=== PATIENT | male | born 1940 | race Caucasian/White ===

== ENCOUNTER 2019-01-11 10:22 | Inpatient (IN) ==
[2019-01-11] MEDS ORDERED: 0.9 % Sodium Chloride 1,000 ML IVC ONE (10:32)
[2019-01-11 11:14] LABS: Basophils % 0.2 %; Eosinophils # 0.1 K/mcL (0.0-0.6); Eosinophils % 0.5 %; Hematocrit 38.7 % (37.5-50.1); Hemoglobin 12.5 g/dL (12.9-16.9); Immature Granulocytes % 0.5 % (0-4); Lymphocytes # 0.5 K/mcL (0.6-4.6); Lymphocytes % 4.3 %; Mean Corpuscular HGB Conc 32.3 g/dL (31.6-35.5); Mean Corpuscular Hemoglobin 29.6 pg (28.0-33.3); Mean Corpuscular Volume 91.5 fL (83.0-100.0); Mean Platelet Volume 9.5 fL (9.4-12.4); Monocytes # 1.4 K/mcL (0.0-1.3); Neutrophils # 10.6 K/mcL (1.6-8.9); Platelet Count 218 K/mcL (140-400); Red Blood Count 4.23 M/mcL (4.19-5.50); Red Cell Distribution Width 14.5 % (11.5-14.5); Segmented Neutrophils % 83.5 %; White Blood Count 12.7 K/mcL (4.3-11.1)
--- NOTE | 2019-01-11 11:21 | Emergency Department Note ---
Disposition Clinical Impression: Acute kidney injury, Elevated troponin Fall Qualifiers: Encounter type: initial encounter Qualified Code(s): W19.XXXA - Unspecified fal l, initial encounter Abrasion of shoulder area Qualifiers: Encounter type: initial encounter Laterality: unspecified laterality Qualified Code(s): S40.219A - Abrasion of unspecified shoulder, initial encounter Abrasion of left forearm Qualifiers: Encounter type: initial encounter Qualified Code(s): S50.812A - Abrasion of left forearm, initial encounter Rhabdomyolysis Qualifiers: Rhabdomyolysis type: traumatic Encounter type: initial encounter Qualified Code(s): T79.6XXA - Traumatic ischemia of muscle, initial encounter Disposition: Admitted As Inpatient Condition: Fair Time of Disposition: 13:41 General Adult HPI - General Chief complaint: ED Fall Stated complaint: Fall, weakness Time Seen by Provider: 01/11/19 10:31 Source: patient, EMS Mode of arrival: EMS Limitations: altered mental status Nursing Notes Reviewed: Yes Vital Signs Reviewed: Yes - History of Present Illness HPI Narrative: Patient is a 78-year-old male with past medical history of hormone replacement, seizure, BPH, and Parkinson's presents to the ED by debbie for evaluation of fal l. Patient lives at home on his own. His family checked on him yesterday and he appeared fine. Somewhere over the past 24 hours he had a fall in which she landed in between his dresser and his bed and was found during a well checked today by police and brought in by squad. Patient states that he recalls the fall and states that he does became weak and lost his footing while getting out of bed and fell down onto his right side was lodged in between his dresser in his bed and to weak to get up. He denies head injury or LOC. Denies blood thinners. Lives at home on his own and his family lives in [place]. Pain Scale: 0 - Related Data Home Medications Medication Instructions Recorded Confirmed Alfuzosin HCl [Uroxatral] 10 mg PO DAILY 01/11/19 01/11/19 Carbidopa/Levodopa ER 50/200 0.5 tab PO 0900 01/11/19 01/11/19 [Sinemet ER 50-200 TAB] Carbidopa/Levodopa ER 50/200 1 tab PO 1700 01/11/19 01/11/19 [Sinemet ER 50-200 TAB] Cholecalciferol (D-3) [Vitamin D] 1,000 unit PO DAILY 01/11/19 01/11/19 Flaxseed Oil [[place]-3 Flaxseed Oil] 1,000 mg PO DAILY 01/11/19 01/11/19 Hydrocortisone [Cortef] 10 mg PO BID 01/11/19 01/11/19 Levothyroxine Sodium [Synthroid] 200 mcg PO DAILY 01/11/19 01/11/19 Omeprazole [PriLOSEC] 20 mg PO DAILY 01/11/19 01/11/19 Solifenacin Succinate [Vesicare] 10 mg PO DAILY 01/11/19 01/11/19 Testosterone Cypionate 200 mg IM Q18D 01/11/19 01/11/19 [Depo-Testosterone] lamoTRIgine [Lamotrigine] 150 mg PO BID 01/11/19 01/11/19 Allergies Allergy/AdvReac Type Severity Reaction Status Date / Time No Known Allergies Allergy Verified 01/11/19 13:18 All systems ED: reviewed and negative except as stated. Review of Systems: As Per HPI Constitutional: Denies: fever, chills Cardiovascular: Reports: chest pain (Abrasion to left chest wall). Denies: palpitations, dyspnea on exertion, edema, syncope, paroxysmal nocturnal dyspnea Respiratory: Denies: cough, dyspnea, wheezes Gastrointestinal: Denies: abdominal pain, nausea, vomiting, diarrhea Genitourinary: Denies: urgency, dysuria Musculoskeletal: Denies: back pain, neck pain Integumentary: Reports: rash (Abrasion to the posterior shoulders bilaterally worse on the left. ) Neurological: Denies: headache, weakness, numbness, paresthesias, confusion Past Medical History - Past Medical History Attestation: Yes The following information was validated with the patient. Medical history: Reports: non-contributory, hypertension, seizures, thyroid disease, other Surgical history: Reports: herniorrhaphy, other Psychiatric history: Reports: no psych history - Social History Smoking Status: Never smoker Smokeless Tobacco Status: No Alcohol use: Reports: none Drug use: Reports: none Physical Exam - General Limitations: no limitations General appearance: alert, in no apparent distress - Head Head exam: atraumatic, normocephalic, normal inspection - Eye Eye exam: Present: normal appearance, PERRL, EOMI - ENT ENT exam: normal exam, normal oropharynx, mucous membranes moist - Neck Neck exam: Present: normal inspection, full ROM, trachea midline - Chest Chest inspection: Present: normal inspection, symmetric chest wall rise - Expanded Chest Exam Trauma: Present: abrasion, other (left chest wall abrasion. No crepitance. ) - Respiratory Respiratory exam: Present: normal lung sounds bilaterally. Absent: respiratory distress, wheezes - Cardiovascular Cardiovascular exam: Present: regular rate, normal rhythm, normal heart sounds - Abdominal Exam Abdominal exam: Present: soft, Non-Tender. Absent: tenderness, distention, guarding, rebound, rigidity - Extremities Exam Extremities exam: Present: other (abrasion of the left forearm. ) - Back Exam Back exam: Present: full ROM, other (posterior shoulder abrasions bilaterally. No bony deformity. No midline or paraspinal tenderness, step-off or deformity. ). Absent: tenderness - Neurological Exam Neurological exam: Present: alert, oriented X3 - Expanded Neurological Exam Patient oriented to: Present: person, place, time Speech: Present: fluid speech Cranial nerves: EOM function (II, III, IV, ): Normal, facial sensation (V): Normal, facial palsy (VII): Normal, gag reflex (IX): Normal, spinal accessory function (XI): Normal, tongue deviation (XII): Normal Motor strength - LUE: 5/5 Motor strength - RUE: 5/5 Motor strength - LLE: 5/5 Motor strength - RLE: 5/5 Sensory exam upper extremity: light touch: Normal Sensory exam lower extremity: light touch: Normal Coma Scale Eye Opening: Spontaneous Coma Scale Motor Response: Obeys Commands Coma Scale Verbal Response: Oriented Coma Scale Total: 15 - Psychiatric Psychiatric exam: Present: normal affect, normal mood - Skin Skin exam: Present: warm, dry, intact, normal color Course Course Narrative: Patient's lab work was significant for elevation of creatinine to 6.59 as well as GFR of 8 which is new compared to labs in August 2017 as well as an elevation of troponin of 0.04 and CK of 1600. This is concerning for rhabdomyolysis causing acute kidney failure. Patient received a liter of fluids was placed on maintenance IV fluids. Urinalysis was collected which showed blood. I discussed these findings with the tunnel form placing supervisor, Dr. Avalos on-call and he agreed to see the patient in consultation. CT of abdomen and pelvis was added onto the patient's exam to evaluate for the sudden a cat which I suspect is more so due to the patient being on the ground over night. His imaging otherwise is unremarkable. I suspect his elevation of troponin which is only very mild elevation is due to the fact that his kidneys are injured. He was admitted to the hospitalist, Dr. Moore for further management. Vital Signs Temperature 98.2 F 01/11/19 10:28 Pulse Rate 76 01/11/19 10:28 Respiratory Rate 18 01/11/19 10:28 Blood Pressure 163/84 01/11/19 10:28 O2 Sat by Pulse Oximetry 99 01/11/19 10:28 Temperature 98.2 F 01/11/19 19:43 Pulse Rate 72 01/11/19 19:43 Respiratory Rate 17 01/11/19 19:43 Blood Pressure 131/64 01/11/19 19:43 O2 Sat by Pulse Oximetry 98 01/11/19 19:43 Oxygen Delivery Oxygen Delivery Room Air Medical Decision Making - Medical Records Medical records reviewed: Yes I reviewed the patient's medical records. - Lab Data Lab results reviewed: Yes I reviewed the patient's lab results. Result diagrams: 01/11/19 10:55 01/11/19 16:23 Lab Results 01/11/19 01/11/19 01/11/19 Range/Units 10:55 10:55 10:55 WBC 12.7 H (4.3-11.1) K/mcL RBC 4.23 (4.19-5.50) M/mcL Hgb 12.5 L (12.9-16.9) g/dL Hct 38.7 (37.5-50.1) % MCV 91.5 (83.0-100.0) fL MCH 29.6 (28.0-33.3) pg MCHC 32.3 (31.6-35.5) g/dL RDW 14.5 (11.5-14.5) % Plt Count 218 (140-400) K/mcL MPV 9.5 (9.4-12.4) fL Immature Gran % 0.5 (0-4) % Seg Neutrophils % 83.5 % Lymphocytes % 4.3 % Monocytes % 11.0 % Eosinophils % 0.5 % Basophils % 0.2 % Neutrophils # 10.6 H (1.6-8.9) K/mcL Lymphocytes # 0.5 L (0.6-4.6) K/mcL Monocytes # 1.4 H (0.0-1.3) K/mcL Eosinophils # 0.1 (0.0-0.6) K/mcL Basophils # 0.0 (0.0-0.2) K/mcL Sodium 139 (136-145) mEq/L Potassium 4.4 (3.5-5.1) mEq/L Chloride 103 (98-107) mEq/L Carbon Dioxide 22 L (23-29) mEq/L BUN 68 H (8-23) mg/dL Creatinine 6.59 H (0.70-1.30) mg/dL Est GFR ( Amer) 10 L (> 60) Est GFR (Non-Af Amer) 8 L (> 60) BUN/Creatinine Ratio 10 (6-26) Glucose 100 (70-105) mg/dL Calculated Osmolality 308 H (280-300) Calcium 9.1 (8.6-10.3) mg/dL Creatine Kinase 1605 H (30-223) Units/L Troponin I 0.04 H* (< 0.04) ng/mL Urine Color (Yellow) Urine Clarity (Clear) Urine pH (5.0-8.0) pH Units Ur Specific [place] (1.010-1.025) Urine Protein (Neg-Trace) mg/dL Urine Glucose (UA) (Normal) mg/dL Urine Ketones (Negative) mg/dL Urine Blood (Negative) Urine Nitrite (Negative) Urine Bilirubin (Negative) Urine Urobilinogen (Normal) mg/dL Ur Leukocyte Esterase (Negative) Urine Microscopic RBC (0-3) per hpf Urine Microscopic WBC (0-3) per hpf Ur Squamous Epith Cells (None-Few) per lpf Urine Bacteria (None-Few) per hpf Hyaline Casts (None-Few) per lpf Ur Culture Indicated? (NO) 01/11/19 Range/Units 12:08 WBC (4.3-11.1) K/mcL RBC (4.19-5.50) M/mcL Hgb (12.9-16.9) g/dL Hct (37.5-50.1) % MCV (83.0-100.0) fL MCH (28.0-33.3) pg MCHC (31.6-35.5) g/dL RDW (11.5-14.5) % Plt Count (140-400) K/mcL MPV (9.4-12.4) fL Immature Gran % (0-4) % Seg Neutrophils % % Lymphocytes % % Monocytes % % Eosinophils % % Basophils % % Neutrophils # (1.6-8.9) K/mcL Lymphocytes # (0.6-4.6) K/mcL Monocytes # (0.0-1.3) K/mcL Eosinophils # (0.0-0.6) K/mcL Basophils # (0.0-0.2) K/mcL Sodium (136-145) mEq/L Potassium (3.5-5.1) mEq/L Chloride (98-107) mEq/L Carbon Dioxide (23-29) mEq/L BUN (8-23) mg/dL Creatinine (0.70-1.30) mg/dL Est GFR ( Amer) (> 60) Est GFR (Non-Af Amer) (> 60) BUN/Creatinine Ratio (6-26) Glucose (70-105) mg/dL Calculated Osmolality (280-300) Calcium (8.6-10.3) mg/dL Creatine Kinase (30-223) Units/L Troponin I (< 0.04) ng/mL Urine Color Yellow (Yellow) Urine Clarity Clear (Clear) Urine pH 5.5 (5.0-8.0) pH Units Ur Specific [place] 1.009 L (1.010-1.025) Urine Protein Negative (Neg-Trace) mg/dL Urine Glucose (UA) Normal (Normal) mg/dL Urine Ketones Negative (Negative) mg/dL Urine Blood Moderate H (Negative) Urine Nitrite Negative (Negative) Urine Bilirubin Negative (Negative) Urine Urobilinogen Normal (Normal) mg/dL Ur Leukocyte Esterase Negative (Negative) Urine Microscopic RBC 15-30 H (0-3) per hpf Urine Microscopic WBC 0-3 (0-3) per hpf Ur Squamous Epith Cells Moderate H (None-Few) per lpf Urine Bacteria None Seen (None-Few) per hpf Hyaline Casts None Seen (None-Few) per lpf Ur Culture Indicated? NO (NO) - Radiology Data Radiology results reviewed: Yes I reviewed the patient's radiology results. Cervical Spine CT 01/11/19 10:32 IMPRESSION: No acute abnormality of the cervical spine. Severe multilevel degenerative changes. Diffuse osteopenia. Partial visualization of biapical opacities. Findings are similar to CT dated January 2017 and likely represent pleuroparenchymal scarring. D/ / 01/11/2019 12:20:44 Kerry Hoff MD / Wendy Lester Interpreting Provider: Kerry Hoff MD Chest X-Ray 01/11/19 10:32 IMPRESSION: 1. No acute cardiopulmonary disease. 2. No acute osseous abnormality of the left shoulder. 3. Mild shoulder osteoarthritis. 4. COPD. D/ / 01/11/2019 11:14:48 Kerry Hoff MD / Wendy Lester Interpreting Provider: Kerry Hoff MD Head CT 01/11/19 10:32 IMPRESSION: Chronic findings in the brain without acute CT abnormality identified. D/ / Huan Colby / Huan Colby Interpreting Provider: Huan Colby Shoulder X-Ray 01/11/19 10:34 IMPRESSION: 1. No acute cardiopulmonary disease. 2. No acute osseous abnormality of the left shoulder. 3. Mild shoulder osteoarthritis. 4. COPD. D/ / 01/11/2019 11:14:48 Kerry Hoff MD / Wendy Lester Interpreting Provider: Kerry Hoff MD - EKG Data EKG #1 EKG attestation: Yes I reviewed and interpreted this EKG. EKG results narrative: EKG done at 10:34 shows sinus rhythm at a rate of 76 bpm. Normal axis. Intervals including QRS that is widened at 127 and patient has a left bundle branch block with peaked T waves. These are unchanged when compared to old EKG performed in March 2018. Otherwise no new ischemic changes.
--- NOTE | 2019-01-11 11:30 | Emergency Department Note ---
Disposition Clinical Impression: Acute kidney injury, Elevated troponin Fall Qualifiers: Encounter type: initial encounter Qualified Code(s): W19.XXXA - Unspecified fal l, initial encounter Abrasion of shoulder area Qualifiers: Encounter type: initial encounter Laterality: unspecified laterality Qualified Code(s): S40.219A - Abrasion of unspecified shoulder, initial encounter Abrasion of left forearm Qualifiers: Encounter type: initial encounter Qualified Code(s): S50.812A - Abrasion of left forearm, initial encounter Rhabdomyolysis Qualifiers: Rhabdomyolysis type: traumatic Encounter type: initial encounter Qualified Code(s): T79.6XXA - Traumatic ischemia of muscle, initial encounter Disposition: Admitted As Inpatient Condition: Fair Referrals: Earl Martin MD [Primary Care Provider] - Forms: ED Satisfaction Letter General Adult HPI - General Chief complaint: ED Fall Stated complaint: Fall, weakness Time Seen by Provider: 01/11/19 10:31 Source: patient, EMS Mode of arrival: EMS Limitations: altered mental status - History of Present Illness Pain Scale: 0 - Related Data Home Medications Medication Instructions Recorded Confirmed Alfuzosin HCl [Uroxatral] 10 mg PO DAILY 01/11/19 01/11/19 Carbidopa/Levodopa ER 50/200 0.5 tab PO 0900 01/11/19 01/11/19 [Sinemet ER 50-200 TAB] Carbidopa/Levodopa ER 50/200 1 tab PO 1700 01/11/19 01/11/19 [Sinemet ER 50-200 TAB] Cholecalciferol (D-3) [Vitamin D] 1,000 unit PO DAILY 01/11/19 01/11/19 Flaxseed Oil [[place]-3 Flaxseed Oil] 1,000 mg PO DAILY 01/11/19 01/11/19 Hydrocortisone [Cortef] 10 mg PO BID 01/11/19 01/11/19 Levothyroxine Sodium [Synthroid] 200 mcg PO DAILY 01/11/19 01/11/19 Omeprazole [PriLOSEC] 20 mg PO DAILY 01/11/19 01/11/19 Solifenacin Succinate [Vesicare] 10 mg PO DAILY 01/11/19 01/11/19 Testosterone Cypionate 200 mg IM Q18D 01/11/19 01/11/19 [Depo-Testosterone] lamoTRIgine [Lamotrigine] 150 mg PO BID 01/11/19 01/11/19 Allergies Allergy/AdvReac Type Severity Reaction Status Date / Time No Known Allergies Allergy Verified 01/11/19 13:18 Constitutional: Denies: fever, chills Cardiovascular: Reports: chest pain (Abrasion to left chest wall). Denies: palpitations, dyspnea on exertion, edema, syncope, paroxysmal nocturnal dyspnea Respiratory: Denies: cough, dyspnea, wheezes Gastrointestinal: Denies: abdominal pain, nausea, vomiting, diarrhea Genitourinary: Denies: urgency, dysuria Musculoskeletal: Denies: back pain, neck pain Integumentary: Reports: rash (Abrasion to the posterior shoulders bilaterally worse on the left. ) Neurological: Denies: headache, weakness, numbness, paresthesias, confusion Past Medical History - Past Medical History Medical history: Reports: non-contributory, hypertension, seizures, thyroid disease, other Surgical history: Reports: herniorrhaphy, other Psychiatric history: Reports: no psych history - Social History Smoking Status: Never smoker Smokeless Tobacco Status: No Alcohol use: Reports: none Drug use: Reports: none Physical Exam - General Limitations: altered mental status General appearance: alert, in no apparent distress Course Vital Signs Temperature 98.2 F 01/11/19 10:28 Pulse Rate 76 01/11/19 10:28 Respiratory Rate 18 01/11/19 10:28 Blood Pressure 163/84 01/11/19 10:28 O2 Sat by Pulse Oximetry 99 01/11/19 10:28 Temperature 98.2 F 01/11/19 10:28 Pulse Rate 73 01/11/19 12:22 Respiratory Rate 18 01/11/19 12:22 Blood Pressure 149/76 01/11/19 12:22 O2 Sat by Pulse Oximetry 100 01/11/19 12:22 Oxygen Delivery Oxygen Delivery Room Air Medical Decision Making - Lab Data Lab results reviewed: Yes I reviewed the patient's lab results. Result diagrams: 01/11/19 10:55 01/11/19 10:55 Lab Results 01/11/19 01/11/19 01/11/19 Range/Units 10:55 10:55 10:55 WBC 12.7 H (4.3-11.1) K/mcL RBC 4.23 (4.19-5.50) M/mcL Hgb 12.5 L (12.9-16.9) g/dL Hct 38.7 (37.5-50.1) % MCV 91.5 (83.0-100.0) fL MCH 29.6 (28.0-33.3) pg MCHC 32.3 (31.6-35.5) g/dL RDW 14.5 (11.5-14.5) % Plt Count 218 (140-400) K/mcL MPV 9.5 (9.4-12.4) fL Immature Gran % 0.5 (0-4) % Seg Neutrophils % 83.5 % Lymphocytes % 4.3 % Monocytes % 11.0 % Eosinophils % 0.5 % Basophils % 0.2 % Neutrophils # 10.6 H (1.6-8.9) K/mcL Lymphocytes # 0.5 L (0.6-4.6) K/mcL Monocytes # 1.4 H (0.0-1.3) K/mcL Eosinophils # 0.1 (0.0-0.6) K/mcL Basophils # 0.0 (0.0-0.2) K/mcL Sodium 139 (136-145) mEq/L Potassium 4.4 (3.5-5.1) mEq/L Chloride 103 (98-107) mEq/L Carbon Dioxide 22 L (23-29) mEq/L BUN 68 H (8-23) mg/dL Creatinine 6.59 H (0.70-1.30) mg/dL Est GFR ( Amer) 10 L (> 60) Est GFR (Non-Af Amer) 8 L (> 60) BUN/Creatinine Ratio 10 (6-26) Glucose 100 (70-105) mg/dL Calculated Osmolality 308 H (280-300) Calcium 9.1 (8.6-10.3) mg/dL Creatine Kinase 1605 H (30-223) Units/L Troponin I 0.04 H* (< 0.04) ng/mL Urine Color (Yellow) Urine Clarity (Clear) Urine pH (5.0-8.0) pH Units Ur Specific [place] (1.010-1.025) Urine Protein (Neg-Trace) mg/dL Urine Glucose (UA) (Normal) mg/dL Urine Ketones (Negative) mg/dL Urine Blood (Negative) Urine Nitrite (Negative) Urine Bilirubin (Negative) Urine Urobilinogen (Normal) mg/dL Ur Leukocyte Esterase (Negative) Urine Microscopic RBC (0-3) per hpf Urine Microscopic WBC (0-3) per hpf Ur Squamous Epith Cells (None-Few) per lpf Urine Bacteria (None-Few) per hpf Hyaline Casts (None-Few) per lpf Ur Culture Indicated? (NO) 01/11/19 Range/Units 12:08 WBC (4.3-11.1) K/mcL RBC (4.19-5.50) M/mcL Hgb (12.9-16.9) g/dL Hct (37.5-50.1) % MCV (83.0-100.0) fL MCH (28.0-33.3) pg MCHC (31.6-35.5) g/dL RDW (11.5-14.5) % Plt Count (140-400) K/mcL MPV (9.4-12.4) fL Immature Gran % (0-4) % Seg Neutrophils % % Lymphocytes % % Monocytes % % Eosinophils % % Basophils % % Neutrophils # (1.6-8.9) K/mcL Lymphocytes # (0.6-4.6) K/mcL Monocytes # (0.0-1.3) K/mcL Eosinophils # (0.0-0.6) K/mcL Basophils # (0.0-0.2) K/mcL Sodium (136-145) mEq/L Potassium (3.5-5.1) mEq/L Chloride (98-107) mEq/L Carbon Dioxide (23-29) mEq/L BUN (8-23) mg/dL Creatinine (0.70-1.30) mg/dL Est GFR ( Amer) (> 60) Est GFR (Non-Af Amer) (> 60) BUN/Creatinine Ratio (6-26) Glucose (70-105) mg/dL Calculated Osmolality (280-300) Calcium (8.6-10.3) mg/dL Creatine Kinase (30-223) Units/L Troponin I (< 0.04) ng/mL Urine Color Yellow (Yellow) Urine Clarity Clear (Clear) Urine pH 5.5 (5.0-8.0) pH Units Ur Specific [place] 1.009 L (1.010-1.025) Urine Protein Negative (Neg-Trace) mg/dL Urine Glucose (UA) Normal (Normal) mg/dL Urine Ketones Negative (Negative) mg/dL Urine Blood Moderate H (Negative) Urine Nitrite Negative (Negative) Urine Bilirubin Negative (Negative) Urine Urobilinogen Normal (Normal) mg/dL Ur Leukocyte Esterase Negative (Negative) Urine Microscopic RBC 15-30 H (0-3) per hpf Urine Microscopic WBC 0-3 (0-3) per hpf Ur Squamous Epith Cells Moderate H (None-Few) per lpf Urine Bacteria None Seen (None-Few) per hpf Hyaline Casts None Seen (None-Few) per lpf Ur Culture Indicated? NO (NO) Critical Care Time Critical Care Time: Yes Total Critical Care Time: 35 Attestation: Critical care time 35 minutes excluding billable procedures due to the patient's acute kidney injury in conjunction with specialty consultation and management. Attestation Statement - Attestation Attestation: Desirae Guzman D.O., examined this patient and my medical decision-making was reviewed with the Resident Physician. I agree with the documented findings, disposition and treatment plan as described except to the extent set forth below. Patient seen in conjunction with Dr Sarkar. Please see his doctor mentation as well for history exam interventions and disposition. In brief 78-year-old male lives at home alone with a history of Parkinson's who presents due to fall. States he believes he fell out of bed last night. He was pinned between his bed and dress her. Denies head injury or loss of consciousness. Family last heard from him yesterday. Her complaint includes left-sided chest wall pain and left shoulder pain. Does not appear to be on any antiplatelet or anticoagulation medications. On exam he is alert, GCS 15, alert and oriented 3 answering questions appropriately. He has abrasions over the left shoulder and left chest wall. Oral mucosa are dry. Heart is regular rate and rhythm. Lungs are clear to auscultation bilaterally. He has chest wall tenderness over the left chest wall. Abdomen is soft nondistended no guarding no peritoneal features. X-rays are without edema or obvious injury. He does have a skin tear to the right forearm. Plan: Plan for CT imaging of the head and cervical spine given his fall. We will also initiate a workup for generalized weakness. Patient will likely warrant admission to the hospital or care facility given his weakness and fact that he lives at home alone. Labs reviewed. Patient has acute kidney injury. Marx will be placed for I&O. We will continue IV fluids. Case was discussed with nephrology who was consulted for this. The patient has no left leg abnormality warranting emergent dialysis at this point. He will be admitted to the hospitalist service. Elevated troponin of 0.04. He is chest pain-free. Nonischemic EKG. This case was discussed with the admitting hospitalist Dr. Moore who accepted the patient for admission. EKG interpretation: EKG discussed with resident physician, agree with their documentation and interpretation. EKG demonstrates sinus rhythm with left bundle branch block. Rate 76. Normal axis. J-point elevation in the anterior leads. No acute ischemic findings. No significant changes from previous EKG dated 03/28/18.
[2019-01-11 11:32] LABS: Calcium 9.1 mg/dL (8.6-10.3); Potassium 4.4 mEq/L (3.5-5.1)
[2019-01-11 11:39] LABS: Troponin I 0.04 ng/mL (< 0.04)
[2019-01-11 12:22] LABS: Bilirubin,Urine Negative (Negative); Blood,Urine Moderate (Negative); Clarity,Urine Clear (Clear); Color,Urine Yellow (Yellow); Glucose,Urine (UA) Normal (Normal); Ketones,Urine Negative (Negative); Leukocyte Esterase,Urine Negative (Negative); Nitrite,Urine Negative (Negative); PH,Urine 5.5 pH Units (5.0-8.0); Protein,Urine Negative (Neg-Trace); Specific Gravity,Urine 1.009 (1.010-1.025); Urobilinogen,Urine Normal (Normal)
[2019-01-11 12:24] LABS: Bacteria,Urine None Seen per hpf (None-Few); Hyaline Casts,Urine None Seen per lpf (None-Few); RBC,Urine 15-30 per hpf (0-3); Squamous Epithelial Cell,Urine Moderate per lpf (None-Few); WBC,Urine 0-3 per hpf (0-3)
[2019-01-11] MEDS ORDERED: Naloxone 0.4 MG/ML INJ IVP PRN (13:31)
[2019-01-11] MEDS ORDERED: *HR* HYDROcodone/Acet 5/325 mg TABLET PO PRN (13:31)
[2019-01-11] MEDS ORDERED: traMADol 50 MG TABLET PO PRN (13:31)
[2019-01-11] MEDS ORDERED: Acetaminophen 325 MG TABLET PO PRN (13:31)
--- NOTE | 2019-01-11 13:42 | Internal Med History&Physical ---
Date of Encounter: 01/11/19 Time of Encounter: 13:00 Internal Medicine - H&P: HPI Chief complaint: Fall, Rhamdomyolysis Admitted From: Emergency Dept Plans for Post Hospital Care: Home History of present illness: Mr. Starkey is a 78 year old male with a past medical history significant for hormone to placement, physical, BPH, Parkinson disease, presented to the ED after a fall. History is not very clear. As per the records, patient was found to be on the floor. Patient met his family yesterday, most likely something happened in the last 24 hours when he fell down, could not get up, was on the floor for an extended period of time and was brought to the ED. Patient is not sure for how long he was on the floor. Denies fever, chills, rigors. Denies any precipitated taking leading to the fall. Denies any dizziness or lightheadedness. Denies cough, shortness of breath, sputum production, dysuria, hematuria, diarrhea, nausea, vomiting. Patient with history of Parkinson disease which could be a precipitating factor towards the fall. In addition, patient is hemodynamically stable. Lab work showed acute kidney injury with a creatinine of 6.59, BUN of 68, creatinine kinase of 1605, troponin of 0.04. Patient was admitted for further management. Past Med Surg Social Fam HX - Past Medical History Medical history: non-contributory, hypertension, seizures, thyroid disease, other Additional medical history: gout, parkinsons Psychiatric history: no psych history - Past Surgical History Surgical History: herniorrhaphy, other Additional surgical history: mitral valve prolapse, - Social History Smoking Status: Never smoker Smokeless Tobacco Status: No Alcohol use: none Drug use: none Internal Medicine - H&P: Meds Alfuzosin HCl [Uroxatral] 10 mg PO DAILY 01/11/19 [History] Carbidopa/Levodopa ER 50/200 [Sinemet ER 50-200 TAB] 0.5 tab PO 0900 01/11/19 [History] Carbidopa/Levodopa ER 50/200 [Sinemet ER 50-200 TAB] 1 tab PO 1700 01/11/19 [History] Cholecalciferol (D-3) [Vitamin D] 1,000 unit PO DAILY 01/11/19 [History] Flaxseed Oil [[place]-3 Flaxseed Oil] 1,000 mg PO DAILY 01/11/19 [History] Hydrocortisone [Cortef] 10 mg PO BID 01/11/19 [History] Levothyroxine Sodium [Synthroid] 200 mcg PO DAILY 01/11/19 [History] Omeprazole [PriLOSEC] 20 mg PO DAILY 01/11/19 [History] Solifenacin Succinate [Vesicare] 10 mg PO DAILY 01/11/19 [History] Testosterone Cypionate [Depo-Testosterone] 200 mg IM Q18D 01/11/19 [History] lamoTRIgine [Lamotrigine] 150 mg PO BID 01/11/19 [History] Allergy/AdvReac Type Severity Reaction Status Date / Time No Known Allergies Allergy Verified 01/11/19 13:18 All Systems PM: A 10-system review of systems was performed and is negative for pertinent findings except as documented above in the HPI. Review of systems: General: Negative for her, chills, rigors. HEENT: Negative for swelling, discharge from nose, discharge from ears. EYES: Negative for any discharge from the eyes. Respiratory: Negative for shortness of breath, orthopnea, exertional dyspnea. Cardiovascular: Negative for chest pain, shortness of breath, orthopnea, PND. Gastrintestical: Negative for diarrhea, constipation, blood in stools. Genitourinary: See HPI Hematological: Negative for blood loss, negative for active cancer. Neurological: Negative for headache, dizziness, blurry vision, loss os power and sensations. Endocrinology: Negative for constipation, polyuria, polydipsia. Psychiatric: Negative for anxiety or depression. - Constitutional Vitals: Temp Pulse Resp BP Pulse Ox 98.2 F 73 18 149/76 100 01/11/19 10:28 01/11/19 12:22 01/11/19 12:22 01/11/19 12:22 01/11/19 12:22 Exam: General: Alert and oriented, no physical distress, able to follow commands. HEENT: No thyromegaly, no lymphadenopathy, no discharge. Respiratory: Normal vesicular breathing, no added sounds, breathing equal in both sides. CVS: Normal heart sounds, no murmurs, no edema. Extremities: No peripheral edema, peripheral pulses intact. Lymph nodes: No lymphadenopathy Gastrointestinal: Soft, nontender abdomen, normal abdominal sounds. No distention noted. Genitourinary: No paravertebral tenderness. Neurological: Alert and oriented. No focal deficits. Cranial nerves II-XII intact. Internal Med - H&P Results - Labs CBC & Chem 7: 01/11/19 10:55 01/11/19 10:55 Labs: Short CBC 01/11/19 Range/Units 10:55 WBC 12.7 H (4.3-11.1) K/mcL Hgb 12.5 L (12.9-16.9) g/dL Hct 38.7 (37.5-50.1) % Plt Count 218 (140-400) K/mcL Neutrophils # 10.6 H (1.6-8.9) K/mcL BMP 01/11/19 10:55 Sodium 139 Potassium 4.4 Chloride 103 Carbon Dioxide 22 L BUN 68 H Creatinine 6.59 H Glucose 100 Calcium 9.1 Cardiac Enzymes 01/11/19 Range/Units 10:55 Troponin I 0.04 H* (< 0.04) ng/mL Urine 01/11/19 Range/Units 12:08 Urine Color Yellow (Yellow) Urine Clarity Clear (Clear) Urine pH 5.5 (5.0-8.0) pH Units Ur Specific [place] 1.009 L (1.010-1.025) Urine Protein Negative (Neg-Trace) mg/dL Urine Glucose (UA) Normal (Normal) mg/dL - Impressions ITS Impressions Cervical Spine CT 01/11/19 10:32 IMPRESSION: No acute abnormality of the cervical spine. Severe multilevel degenerative changes. Diffuse osteopenia. Partial visualization of biapical opacities. Findings are similar to CT dated January 2017 and likely represent pleuroparenchymal scarring. D/ / 01/11/2019 12:20:44 Kerry Hoff MD / Wendy Lester Interpreting Provider: Kerry Hoff MD Chest X-Ray 01/11/19 10:32 IMPRESSION: 1. No acute cardiopulmonary disease. 2. No acute osseous abnormality of the left shoulder. 3. Mild shoulder osteoarthritis. 4. COPD. D/ / 01/11/2019 11:14:48 Kerry Hoff MD / Wendy Lester Interpreting Provider: Kerry Hoff MD Head CT 01/11/19 10:32 IMPRESSION: Chronic findings in the brain without acute CT abnormality identified. D/ / Huan Colby / Huan Colby Interpreting Provider: Huan Colby Shoulder X-Ray 01/11/19 10:34 IMPRESSION: 1. No acute cardiopulmonary disease. 2. No acute osseous abnormality of the left shoulder. 3. Mild shoulder osteoarthritis. 4. COPD. D/ / 01/11/2019 11:14:48 Kerry Hoff MD / Wendy Lester Interpreting Provider: Kerry Hoff MD - Assessment and Plan (1) Rhabdomyolysis Current Visit: Yes Status: Acute Assessment and plan: Likely secondary to the fall along with immobilization after the fall. Creatinine kinase evaluated at presentation. Patient has acute kidney injury. No signs of hydronephrosis on a CT scan of the abdomen. Currently patient is on IV fluids. Plan: Continue the patient on IV fluids. Repeat kidneyy functions and the creatine inase in the morning Qualifiers: Rhabdomyolysis type: traumatic Encounter type: initial encounter Qualified Code(s): T79.6XXA - Traumatic ischemia of muscle, initial encounter (2) Leucocytosis Current Visit: Yes Status: Acute Assessment and plan: Etiology unclear. Likely stress related. No signs of infection. Continue the patient off the antibiotics. Repeat CBC tomorrow. Qualifiers: Leukocytosis type: leukemoid reaction Qualified Code(s): D72.823 - Leukemoid reaction (3) Parkinson disease Current Visit: Yes Status: Acute Assessment and plan: Continue the patient on home medications. (4) Benign prostate hyperplasia Current Visit: Yes Status: Acute Assessment and plan: Stable. Continue the patient on home medications. Qualifiers: Lower urinary tract symptom presence: unspecified whether lower urinary tract symptoms present Qualified Code(s): N40.0 - Benign prostatic hyperplasia without lower urinary tract symptoms (5) Acute kidney injury Current Visit: Yes Status: Acute Assessment and plan: Likely in context of rhabdomyolysis Patient carotid creatinine is 6.5, baseline is around 0.94. Nephrology on board. Continue him on IV fluids. Repeat BMP tomorrow. (6) Elevated troponin Current Visit: Yes Status: Acute Assessment and plan: Nonspecific elevation in contact of the rhabdo EKG normal. Repeat a troponin level. (7) Fall Current Visit: Yes Status: Acute Assessment and plan: Likely in mechanical. As the patient given a precipitating factor spitting nextof note, patient is a history of Parkinson disease, predisposed to fall. CT scan of the spine, chest, abdomen , head with no traumatiic injury Physical therapy ordered. Qualifiers: Encounter type: initial encounter Qualified Code(s): W19.XXXA - Unspecified fall, initial encounter (8) History of seizure Current Visit: Yes Status: Acute Assessment and plan: Continue lamotrigine. (9) DVT prophylaxis Current Visit: Yes Status: Acute Assessment and plan: subQ heparin - Summary of Assessment and Plan Summary of Assessment and Plan: Hormone replacement therapy: Continue the patient on steroids. Started the patient on testosterone tomorrow once the kidney function are better. - Time Spent With Patient Total time spent is greater than 50% in coordination of care (as documented) at patient's floor/unit and/or counseling patient:
[2019-01-11] MEDS: 0.9 % Sodium Chloride 1,000 ML IVC SCH ×3 (13:56→22:15)
[2019-01-11 17:03] LABS: Calcium 8.5 mg/dL (8.6-10.3); Potassium 4.2 mEq/L (3.5-5.1)
[2019-01-11 17:08] LABS: Troponin I 0.04 ng/mL (< 0.04)
[2019-01-11] MEDS: *HR* Heparin 5,000 UNIT/ML VIAL SQ SCH (17:24)
[2019-01-11] MEDS: Carbidopa/Levodopa ER 50/200 TABLET PO SCH (17:24)
[2019-01-11] MEDS: lamoTRIgine 100 MG TABLET PO SCH (20:26)
[2019-01-11] MEDS ORDERED: Hydrocortisone 10 MG TABLET PO SCH (21:00)
[2019-01-12] MEDS: *HR* Heparin 5,000 UNIT/ML VIAL SQ SCH ×2 (05:15→18:13)
[2019-01-12 06:41] LABS: Basophils % 0.3 %; Eosinophils # 0.2 K/mcL (0.0-0.6); Hematocrit 34.7 % (37.5-50.1); Hemoglobin 11.3 g/dL (12.9-16.9); Immature Granulocytes % 0.7 % (0-4); Lymphocytes # 0.7 K/mcL (0.6-4.6); Lymphocytes % 11.9 %; Mean Corpuscular HGB Conc 32.6 g/dL (31.6-35.5); Mean Corpuscular Hemoglobin 29.8 pg (28.0-33.3); Mean Corpuscular Volume 91.6 fL (83.0-100.0); Mean Platelet Volume 9.7 fL (9.4-12.4); Monocytes # 0.6 K/mcL (0.0-1.3); Neutrophils # 4.5 K/mcL (1.6-8.9); Platelet Count 186 K/mcL (140-400); Red Blood Count 3.79 M/mcL (4.19-5.50); Red Cell Distribution Width 14.6 % (11.5-14.5); Segmented Neutrophils % 74.1 %
[2019-01-12 06:59] LABS: Calcium 8.4 mg/dL (8.6-10.3); Magnesium 2.2 mg/dL (1.6-2.6); Phosphorous 3.8 mg/dL (2.7-4.5); Potassium 4.2 mEq/L (3.5-5.1)
[2019-01-12] MEDS: lamoTRIgine 100 MG TABLET PO SCH ×2 (09:40→20:01)
[2019-01-12] MEDS: Hydrocortisone 10 MG TABLET PO SCH ×2 (09:41→18:13)
[2019-01-12] MEDS: Carbidopa/Levodopa ER 50/200 TABLET PO SCH ×2 (09:41→18:13)
[2019-01-12] MEDS: 0.9 % Sodium Chloride 1,000 ML IVC SCH ×2 (11:34→20:01)
--- NOTE | 2019-01-12 11:40 | Nephrology Consult Note ---
Date of Encounter: 01/12/19 Time of Encounter: 11:37 Assessment and Plan (1) Acute kidney injury Current Visit: Yes Status: Acute In August of this year, GFR was greater than 60. GFR is 13 today. MICKEY is likely related to dehydration secondary to the fall. He was down for approximately 24 hours. Initial CK was 1605 has trended down to 1026 Will check a uric acid. Urine studies and retroperitoneal ultrasound also ordered. Continue IV hydration. Encouraged adequate PO intake. Strict I/O Avoid nephrotoxins and renal dose. (2) Benign prostate hyperplasia Current Visit: Yes Status: Acute Per primary. Qualifiers: Lower urinary tract symptom presence: unspecified whether lower urinary tract symptoms present Qualified Code(s): N40.0 - Benign prostatic hyperplasia without lower urinary tract symptoms (3) Fall Current Visit: Yes Status: Acute Would suggest a social service consult for discussion about an extended care facility. Qualifiers: Encounter type: initial encounter Qualified Code(s): W19.XXXA - Unspecified fall, initial encounter (4) History of seizure Current Visit: Yes Status: Acute Per primary. History of Present Illness - Reason for Consult Consult date: 01/12/19 Acute Kidney Injury Requesting physician: Josiane Moore - Chief Complaint s/p fall - History of Present Illness Mr. Starkey is a 78-year-old male who presented to the ED via squad after a fall at home. PMH: hormone replacement therapy, seizure disorder, BPH, and Parkinson's disease. He does live at home alone on the day of the fall he was seen by his family and approximately in the next 24 hours he fell and was found down on the floor. He is unsure how long he was down on the floor. His closest family is in [facility]. Per ED reports the fall happened sometime on 01/10/2019. He was brought into the ED on January 11 2019. Upon examination patient is somewhat slow to respond but appears to be alert and oriented. He knew who the president was and today's date. In August 2018 his GFR was greater than 60 initial GFR in the ED was 8 has now improved to 13. Acute kidney injury is likely related to dehydration related to the fall. MICKEY workup has been ordered. He has never been told he has had any kidney issues. He denies any family history of kidney disorders or hemodialysis. Denies tobacco, EtOH or illicit drug use. Past Med Surg Social Fam HX - Past Medical History Medical history: non-contributory, hypertension, seizures, thyroid disease, other Additional medical history: gout, parkinsons Psychiatric history: no psych history - Past Surgical History Surgical History: herniorrhaphy, other Additional surgical history: mitral valve prolapse, - Social History Smoking Status: Never smoker Smokeless Tobacco Status: No Alcohol use: none Drug use: none Medications and Allergies Alfuzosin HCl [Uroxatral] 10 mg PO DAILY 01/11/19 [History] Carbidopa/Levodopa ER 50/200 [Sinemet ER 50-200 TAB] 0.5 tab PO 0900 01/11/19 [History] Carbidopa/Levodopa ER 50/200 [Sinemet ER 50-200 TAB] 1 tab PO 1700 01/11/19 [History] Cholecalciferol (D-3) [Vitamin D] 1,000 unit PO DAILY 01/11/19 [History] Flaxseed Oil [[place]-3 Flaxseed Oil] 1,000 mg PO DAILY 01/11/19 [History] Hydrocortisone [Cortef] 10 mg PO BID 01/11/19 [History] Levothyroxine Sodium [Synthroid] 200 mcg PO DAILY 01/11/19 [History] Omeprazole [PriLOSEC] 20 mg PO DAILY 01/11/19 [History] Solifenacin Succinate [Vesicare] 10 mg PO DAILY 01/11/19 [History] Testosterone Cypionate [Depo-Testosterone] 200 mg IM Q18D 01/11/19 [History] lamoTRIgine [Lamotrigine] 150 mg PO BID 01/11/19 [History] Allergy/AdvReac Type Severity Reaction Status Date / Time No Known Allergies Allergy Verified 01/11/19 13:18 Review of Systems All Systems review (narrative): The remainder of the systems are negative Constitutional: no chills, no fatigue, no fever(s) Cardiovascular: no chest pain, no dyspnea Respiratory: no cough Gastrointestinal: no diarrhea, no nausea, no vomiting Exam - Vital Signs Vital signs: Initial Vital Signs Temp Pulse Resp BP Pulse Ox 98.2 F 76 18 163/84 99 01/11/19 10:28 01/11/19 10:28 01/11/19 10:28 01/11/19 10:28 01/11/19 10:28 Vital Signs - Last 8 Hours Temp Pulse Resp BP Pulse Ox 01/12/19 11:23 63 16 162/75 98 01/12/19 09:57 100 01/12/19 07:24 97.8 F 63 16 173/77 100 01/12/19 03:51 98.3 F 74 17 148/72 99 Intake and Output 01/11/19 01/12/19 01/12/19 23:59 07:59 15:59 Intake Total 1120 / 1120 1120 / 1120 Output Total 1400 / 1400 1200 / 1750 550 / 1750 Balance -280 / -280 -80 / -630 -550 / -630 Intake: IV Fluids 1000 / 1000 1000 / 1000 0.9 % Sodium Chloride 1,000 ML 1000 / 1000 1000 / 1000 @ 125 mls/hr IVC .Q8H ISAI Rx#: [id number] Oral 120 / 120 120 / 120 Output: Urine 1200 / 1200 Catheter 1400 / 1400 550 / 550 Other: Weight 92.9 kg 93 kg Blood Glucose* 78 81 Patient Weight 01/12/19 23:59 Weight 93 kg - General Appearance General appearance: well-developed, well-nourished EENT: ATNC, hearing intact, vision intact Neck: supple Respiratory: clear Cardiology: no edema, normal S1, normal S2 Gastrointestinal: normoactive bowel sounds, no tenderness, no guarding Integumentary: no rash, warm and dry Neurologic: alert and oriented x3 Musculoskeletal: no deformities, no erythema Psychiatric: mood/affect appropriate, cooperative Results - Lab Results 01/12/19 06:17 01/12/19 12:32 Most recent lab results 01/12/19 06:17 Calcium 8.4 L Phosphorus 3.8 Magnesium 2.2 Consult Discharge Plan - Plan Referrals: Earl Martin MD [Primary Care Provider] -
[2019-01-12 13:31] LABS: Uric Acid 8.7 mg/dL (2.3-7.6)
--- NOTE | 2019-01-12 14:22 | Neurology - Consult Note ---
Date of Encounter: 01/12/19 Time of Encounter: 14:08 Assessment and Plan (1) Left-sided weakness Current Visit: Yes Status: Acute Sx onset early this morning upon awakening with c/o diffuse left sided weakness and sensory deficits Events occurring s/p fall of unknown etiology resulting in Rhabdomyolysis and MICKEY Has a component of failure to thrive as well with a h/o severe Parkinson's Risk factors Age, previous CVA, Sz and HTN NIH - 6 CT head without acute findings CT C-spine without acute findings Not chronically on ASA or Statin meds; will start C/W CVA workup and r/o acute spinal cord pathology for diffuse lt side weakness PLAN: MRI brain and C-spine pending Starting ASA and Statin medications empirically Echocardiogram pending completion Carotid Duplex scan pending completion C/W medical and supportive care for MICKEY and Rhabdomyolysis per primary team Continue to treat underlying medical issues Neurology will follow; further recommendations pending completion of w/u (2) History of seizure Current Visit: Yes Status: Acute per hx last sz in 1994 per patient taking lamictal currently; c/w lamictal at home dose has f/u with primary neurologist in January c/w seizure precautions especially considering falls of unclear cause (3) Parkinson disease Current Visit: Yes Status: Acute Familiar to the Neurology team c/w Parkinsonian medications Sinemet at home dose Has f/u scheduled in January with primary neurologist History of Present Illness Chief complaint: Diffuse left sided weakenss; CVA r/o HPI: Mr. Starkey is a 78 year old male with a PMH of acromegaly, Parkinson's disease, HTN, hypothyroidism, mitral valve prolapse and seizures. He presents to [facility] after a well check finding him of the floor of his house. The patient reports that he is not exactly clear what happened but notes that he fell and was unable to get up. It is unclear how long he was down. The fall resulted in rhabdomyolysis and an acute kidney injury. The hospitalist team noted diffuse left sided weakness on todays exam prompting neurological consultation. The patient reports to he awoke this morning and was unable to lift his left arm or leg. He denies any chronic left sided neurological deficits. He states that he feels very tired today and weak on his left side. In addition to this he is having diminished sensation to his left arm and leg as well. He denies any slurred speech, dysphagia, dysarthria, headaches, visual disturbances, language dysfunction, chest pain, or palpitations. Chart review A CT of the head was completed on admission and did not identify an acute ischemic process. A CT of the cervical spine was also completed finding no acute abnormality of the C spine only revealing severe multilevel degenerative changes and diffuse osteopenia. XR of [facility] left shoulder shows no acute osseous abnormality of the left shoulder and mild shoulder osteoarthritis. Further the CXR was negative for an acute pulmonary process. A CT of the abdomen and pelvis reveals no acute traumatic injury, finding compression deformities of L1, L3 and L4 suggestive of chronicity and an apparent soft tissue fullness near the duodenum and pancreas with pancreatic ductal dilatation for biliary dilatation. Review of the vitals reveal a mild HTN with SBP in the 160's-170's and the chemistry panel reveals improving MICKEY with an Scr of 3.83, GFR of 15 an CK of 1026. Past Med Surg Social Fam HX - Past Medical History Medical history: non-contributory, hypertension, seizures, thyroid disease, other Additional medical history: gout, parkinsons Psychiatric history: no psych history - Past Surgical History Surgical History: herniorrhaphy, other Additional surgical history: mitral valve prolapse, - Social History Smoking Status: Never smoker Smokeless Tobacco Status: No Alcohol use: none Drug use: none Medications and Allergies Alfuzosin HCl [Uroxatral] 10 mg PO DAILY 01/11/19 [History] Carbidopa/Levodopa ER 50/200 [Sinemet ER 50-200 TAB] 0.5 tab PO 0900 01/11/19 [History] Carbidopa/Levodopa ER 50/200 [Sinemet ER 50-200 TAB] 1 tab PO 1700 01/11/19 [History] Cholecalciferol (D-3) [Vitamin D] 1,000 unit PO DAILY 01/11/19 [History] Flaxseed Oil [Alvord-3 Flaxseed Oil] 1,000 mg PO DAILY 01/11/19 [History] Hydrocortisone [Cortef] 10 mg PO BID 01/11/19 [History] Levothyroxine Sodium [Synthroid] 200 mcg PO DAILY 01/11/19 [History] Omeprazole [PriLOSEC] 20 mg PO DAILY 01/11/19 [History] Solifenacin Succinate [Vesicare] 10 mg PO DAILY 01/11/19 [History] Testosterone Cypionate [Depo-Testosterone] 200 mg IM Q18D 01/11/19 [History] lamoTRIgine [Lamotrigine] 150 mg PO BID 01/11/19 [History] Allergy/AdvReac Type Severity Reaction Status Date / Time No Known Allergies Allergy Verified 01/11/19 13:18 All Systems: The remainder of the systems were reviewed and are negative Review of Systems: REVIEW OF SYSTEMS NEUROLOGIC: Negative for any blurry vision, blind spots, double vision, facial asymmetry, dysphagia, dysarthria, hemiparesis, hemisensory deficits, vertigo, ataxia, seizures, paralysis, tingling Positive- diffuse left sided sensory loss and diffuse left sided weakness HEENT: Negative for any head trauma, neck trauma, neck stiffness CARDIAC: Negative for any chest pain, or palpitations MUSCULOSKELETAL: loss of strength left arm and leg; decreased activity tolerance Physical Examination - Vital Signs Vital Signs: Initial Vital Signs Temp Pulse Resp BP Pulse Ox 98.2 F 76 18 163/84 99 01/11/19 10:28 01/11/19 10:28 01/11/19 10:28 01/11/19 10:28 01/11/19 10:28 - Exam Exam: Examination: General Examination: *CONSTITUTIONAL: Alert and oriented x3, no acute distress *GENERAL APPEARANCE OF PATIENT elderly male who appears chronically ill *EYES: pupils equal, round, reactive to light and accommodation, conjunctiva clear without masses or ulcerations, fundi normal. *CARDIOVASCULAR: RRR, no peripheral edema, distal temperature normal, dorsalis pedis pulses normal. Refer to vital signs *MUSCULOSKELETAL: *GAIT AND STATION: deferred *ASSESSMENT OF MUSCLE STRENGTH IN THE UPPER AND LOWER EXTREMITIES left deltoid, and tricep are 2/5, left bicep and personal attendant strength 3/5, right bicep, tricep, personal attendant strength 4/5, Left hip flexors ,anterior tibialis, dorsoflexion of the foot 2/5, right hip flexors, anterior tibialis, and dorsoflexion of the foot 4/5 *MUSCLE TONE IN THE UPPER AND LOWER EXTREMITIES The patient has rigidity in all four extremities most notably in the LUE and LLE. There is also a re sting tremor of the right hand and right foot. Tongue atrophy seen as well as atrophy of the frontalis and temporalis musculature. Neurological: *ORIENTATION to person, situation, time and place *LANGUAGE AND FUNCTION no significant aphasia or dysarthia was noted. *ATTENTION AND CONCENTRATION are normal *LANGUAGE FUNCTION no significant aphasia or dysarthia was noted. *FUND OF KNOWLEDGE aware of current events, past history, vocabulary *MENTAL attention span and concentration are abnormal as the patient is somewhat lethargic; however, he arouses easily to gentle verbal stimulus and will maintain attention thereafter and participates in exam *CN II optic fundi were normal, no papilledema noted. *CN III,IV, PERRLA extraocular eye movements were full, no nystagmus and no ptosis noted. *CN V shows normal sensation and jaw opens symmetrically. *CN VII shows normal facial movement symmetrically, upper and lower bilaterally. *CN VIII shows no significant hearing loss on exam *CN IX-X palate elevated symmetrically *CN XI normal strength in the sternocleidomastoid muscles, symmetrical shoulder shrugging. *CN XII tongue protruded in the midline, with normal strength and movement. *SENSORY EXAMINATION diffuse left sided sensory loss; difficulty distinguishing between sharp and dull pain on left side *REFLEXES: deep tendon reflexes were absent diffusely, no pathological reflexes were noted. *CEREBELLAR TESTING abnormal finger to nose on lt; unable to perform, heel/knee/izquierdo abnormal as well; unable to perform *PAIN LEVEL 0/10 Results - Laboratory Findings CBC and BMP: 01/12/19 06:17 01/12/19 12:32 Abnormal lab findings: Abnormal lab results WBC 12.7 K/mcL (4.3-11.1) H 01/11/19 10:55 RBC 3.79 M/mcL (4.19-5.50) L 01/12/19 06:17 Hgb 11.3 g/dL (12.9-16.9) L 01/12/19 06:17 Hct 34.7 % (37.5-50.1) L 01/12/19 06:17 RDW 14.6 % (11.5-14.5) H 01/12/19 06:17 Neutrophils # 10.6 K/mcL (1.6-8.9) H 01/11/19 10:55 Lymphocytes # 0.5 K/mcL (0.6-4.6) L 01/11/19 10:55 Monocytes # 1.4 K/mcL (0.0-1.3) H 01/11/19 10:55 Chloride 109 mEq/L (98-107) H 01/12/19 06:17 Carbon Dioxide 21 mEq/L (23-29) L 01/11/19 16:23 BUN 57 mg/dL (8-23) H 01/12/19 06:17 Creatinine 3.83 mg/dL (0.70-1.30) H 01/12/19 12:32 Est GFR ( Amer) 19 (> 60) L 01/12/19 12:32 Est GFR (Non-Af Amer) 15 (> 60) L 01/12/19 12:32 Calculated Osmolality 315 (280-300) H 01/12/19 06:17 Uric Acid 8.7 mg/dL (2.3-7.6) H 01/12/19 12:32 Calcium 8.4 mg/dL (8.6-10.3) L 01/12/19 06:17 Creatine Kinase 1026 Units/L (30-223) H 01/12/19 06:17 Troponin I 0.04 ng/mL (< 0.04) H* 01/11/19 16:23 Ur Specific [place] 1.009 (1.010-1.025) L 01/11/19 12:08 Urine Blood Moderate (Negative) H 01/11/19 12:08 Urine Microscopic RBC 15-30 per hpf (0-3) H 01/11/19 12:08 Ur Squamous Epith Cells Moderate per lpf (None-Few) H 01/11/19 12:08 - Diagnostic Findings Additional findings: CT/CT head/brain wo con IMPRESSION: Chronic findings in the brain without acute CT abnormality identified. CT/CT cervical spine wo con IMPRESSION: No acute abnormality of the cervical spine. Severe multilevel degenerative changes. Diffuse osteopenia. Consult Discharge Plan - Plan Referrals: Earl Martin MD [Primary Care Provider] -
[2019-01-12] MEDS: Aspirin 81 MG TAB.CHEW PO SCH (15:00)
--- NOTE | 2019-01-12 17:00 | Internal Med Progress Note ---
Hospitalist Progress Note - Encounter Date of Encounter: 01/12/19 Time of Encounter: 16:58 - Subjective Interval History: Evaluated patient earlier today. Patient reports that he has left upper extremity weakness which he has noticed for the first time today. He denies any vision changes. No other focal weakness. He also describes some numbness in h is left upper extremity. - Exam Vitals: Temp Pulse Resp BP Pulse Ox 97.5 F L 64 16 171/73 98 01/12/19 16:09 01/12/19 16:09 01/12/19 16:09 01/12/19 16:09 01/12/19 16:09 Exam: General: Patient is alert, no acute distress, oriented x 3 ENT: Mucous membranes moist Respiratory: Good respiratory effort. Normal breath sounds. No wheezing or crackles. Cardiovascular: Regular rate and rhythm. s1 and s2 normal No clicks, rubs, gallops, or murmurs. No pedal edema Abdomen: Abdomen is soft, nontender. Bowel sounds are present Musculoskeletal: Spontaneously moving all extremities Skin: warm, dry, intact. 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 Strength also decreased in left lower extremity. Normal in right upper and lower extremity. Patient does have resting tremor - Assessment and Plan (1) Fall Current Visit: Yes Status: Acute (2) Rhabdomyolysis Current Visit: Yes Status: Acute (3) Acute kidney injury Current Visit: Yes Status: Acute (4) Elevated troponin Current Visit: Yes Status: Acute (5) Leucocytosis Current Visit: Yes Status: Acute (6) Parkinson disease Current Visit: Yes Status: Chronic (7) Benign prostate hyperplasia Current Visit: Yes Status: Chronic (8) History of seizure Current Visit: Yes Status: Chronic (9) DVT prophylaxis Current Visit: Yes Status: Acute DVT Prophylaxis: On subcutaneous heparin - Summary of Assessment and Plan Summary of Assessment and Plan: Acute rhabdomyolysis with acute kidney injury: Improving overall. Continue IV hydration. CPK levels are trending down. Creatinine also trending down. Will reassess in the morning with CPK and renal function. New left-sided weakness. Uncertain onset. Patient only noticed it this morning. Consulted with neurology. Patient does have underlying Parkinson's disease. However given uncertain cause for her left sided weakness, Recommend continuing with possible CVA workup. MRI of C-spine and brain ordered. Parkinson's disease: Continue Sinemet. BPH: Continue tamsulosin. History of seizure disorder: Continue Lamictal. Moderate risk for complications. - Time Spent with Patient Total time spent is greater than 50% in coordination of care (as documented) at patient's floor/unit and/or counseling patient: Internal Medicine: Result - Labs CBC & Chem 7: 01/12/19 06:17 01/12/19 12:32 Labs: Short CBC 01/12/19 Range/Units 06:17 WBC 6.0 D (4.3-11.1) K/mcL Hgb 11.3 L (12.9-16.9) g/dL Hct 34.7 L (37.5-50.1) % Plt Count 186 (140-400) K/mcL Neutrophils # 4.5 (1.6-8.9) K/mcL BMP 01/11/19 01/12/19 01/12/19 16:23 06:17 12:32 Sodium 142 145 Potassium 4.2 4.2 Chloride 108 H 109 H Carbon Dioxide 21 L 23 BUN 61 H 57 H Creatinine 5.97 H 4.30 H 3.83 H Glucose 89 89 Calcium 8.5 L 8.4 L Cardiac Enzymes 01/11/19 Range/Units 16:23 Troponin I 0.04 H* (< 0.04) ng/mL - Impressions Impressions Cervical Spine CT 01/11/19 10:32 IMPRESSION: No acute abnormality of the cervical spine. Severe multilevel degenerative changes. Diffuse osteopenia. Partial visualization of biapical opacities. Findings are similar to CT dated January 2017 and likely represent pleuroparenchymal scarring. D/ / 01/11/2019 12:20:44 Kerry Hoff MD / Wendy Lester Interpreting Provider: Kerry Hoff MD Chest X-Ray 01/11/19 10:32 IMPRESSION: 1. No acute cardiopulmonary disease. 2. No acute osseous abnormality of the left shoulder. 3. Mild shoulder osteoarthritis. 4. COPD. D/ / 01/11/2019 11:14:48 Kerry Hoff MD / Wendy Lester Interpreting Provider: Kerry Hoff MD Shoulder X-Ray 01/11/19 10:34 IMPRESSION: 1. No acute cardiopulmonary disease. 2. No acute osseous abnormality of the left shoulder. 3. Mild shoulder osteoarthritis. 4. COPD. D/ / 01/11/2019 11:14:48 Kerry Hoff MD / Wendy Lester Interpreting Provider: Kerry Hoff MD Consult Discharge Plan - Plan Referrals: Earl Martin MD [Primary Care Provider] - (1) Fall Qualifiers: Encounter type: initial encounter Qualified Code(s): W19.XXXA - Unspecified fall, initial encounter (2) Rhabdomyolysis Qualifiers: Rhabdomyolysis type: traumatic Encounter type: initial encounter Qualified Code(s): T79.6XXA - Traumatic ischemia of muscle, initial encounter (5) Leucocytosis Qualifiers: Leukocytosis type: leukemoid reaction Qualified Code(s): D72.823 - Leukemoid reaction (7) Benign prostate hyperplasia Qualifiers: Lower urinary tract symptom presence: unspecified whether lower urinary tract symptoms present Qualified Code(s): N40.0 - Benign prostatic hyperplasia without lower urinary tract symptoms
[2019-01-13 01:10] LABS: Protein/Creatinine Ratio,Urine 0.58 mg/mg (0.00-0.20); Sodium, Urine 65.5 mEq/L
[2019-01-13 04:38] LABS: White Blood Count 4.6 K/mcL (4.3-11.1)
[2019-01-13] MEDS: 0.9 % Sodium Chloride 1,000 ML IVC SCH ×2 (04:38→15:30)
[2019-01-13 04:39] LABS: Basophils % 0.4 %; Eosinophils # 0.2 K/mcL (0.0-0.6); Eosinophils % 5.3 %; Hematocrit 31.7 % (37.5-50.1); Hemoglobin 10.2 g/dL (12.9-16.9); Immature Granulocytes % 0.4 % (0-4); Lymphocytes # 0.7 K/mcL (0.6-4.6); Lymphocytes % 15.8 %; Mean Corpuscular HGB Conc 32.2 g/dL (31.6-35.5); Mean Corpuscular Hemoglobin 29.7 pg (28.0-33.3); Mean Corpuscular Volume 92.2 fL (83.0-100.0); Mean Platelet Volume 9.8 fL (9.4-12.4); Monocytes # 0.7 K/mcL (0.0-1.3); Monocytes % 14.9 %; Neutrophils # 2.9 K/mcL (1.6-8.9); Platelet Count 181 K/mcL (140-400); Red Blood Count 3.44 M/mcL (4.19-5.50); Red Cell Distribution Width 14.5 % (11.5-14.5); Segmented Neutrophils % 63.2 %
[2019-01-13 04:57] LABS: Calcium 7.8 mg/dL (8.6-10.3); Potassium 3.9 mEq/L (3.5-5.1)
[2019-01-13] MEDS: *HR* Heparin 5,000 UNIT/ML VIAL SQ SCH ×2 (05:40→17:04)
[2019-01-13] MEDS: Hydrocortisone 10 MG TABLET PO SCH ×2 (08:25→17:04)
[2019-01-13] MEDS: Carbidopa/Levodopa ER 50/200 TABLET PO SCH ×2 (08:25→17:04)
[2019-01-13] MEDS: lamoTRIgine 100 MG TABLET PO SCH ×2 (08:26→20:36)
[2019-01-13] MEDS: Aspirin 81 MG TAB.CHEW PO SCH (08:26)
--- NOTE | 2019-01-13 09:15 | Neurology Progress Note ---
Date of Encounter: 01/13/19 Time of Encounter: 09:09 Assessment and Plan (1) Left-sided weakness Current Visit: Yes Status: Acute Sx onset early yesterday morning upon awakening with c/o diffuse left sided weakness and sensory deficits SX of diffuse left sided weakness with sensory loss are persistent this morning; no new neurological deficits found on exam today. Has a component of failure to thrive as well with a h/o severe Parkinson's CT head without acute findings CT C-spine without acute findings Workup for PHARMACY TECHNICIAN INFUSION etiology pending PLAN: MRI brain and C-spine pending Continue ASA and Statin medications Echocardiogram pending Carotid Duplex scan pending C/W medical and supportive care for MICKEY and Rhabdomyolysis per primary team -Renal fx has improved Scr 2.90 today GFR is 21 and CK is 443 Continue to treat underlying medical issues Neurology will follow; further recommendations pending completion of w/u (2) History of seizure Current Visit: Yes Status: Acute per hx last sz in 1994 per patient taking lamictal currently; c/w lamictal at home dose has f/u with primary neurologist in January c/w seizure precautions especially considering falls of unclear cause (3) Parkinson disease Current Visit: Yes Status: Chronic Familiar to the Neurology team c/w Parkinsonian medications Sinemet at home dose Has f/u scheduled in January with primary neurologist (4) Rhabdomyolysis Current Visit: Yes Status: Acute Occurring s/p fall of unknown etiology resulting in Rhabdomyolysis and MICKEY -Scr downtrending today 2.90 -GFR also improving at 21 -CK is 443 -being managed per primary team Qualifiers: Rhabdomyolysis type: traumatic Encounter type: initial encounter Qualified Code(s): T79.6XXA - Traumatic ischemia of muscle, initial encounter Subjective Principal diagnosis: Diffuse left-sided weakness; rule out ischemic event Interval history: The patient was seen in follow-up today for diffuse left-sided weakness and sensory loss. Today the patient is calm and cooperative and there are no new neurological deficits found. He continues to have persistent diffuse left-sided weakness with sensory loss. He reports this as an abrupt onset yesterday morning and given these findings there is concern for PHARMACY TECHNICIAN INFUSION pathology. At this juncture the workup including MRI of the brain and cervical spine are pending. The plan of care was discussed with the patient. His main concerns at this time are in regards to new left forearm pain. This pain has been ongoing since his fall but he was lethargic yesterday and did not report it at the time of my initial assessment yesterday. Otherwise he has no other questions or concerns. Objective - Constitutional Vitals: Temp Pulse Resp BP Pulse Ox 98.1 F 57 18 156/74 99 01/13/19 07:32 01/13/19 07:32 01/13/19 07:32 01/13/19 07:32 01/13/19 08:29 Exam: Examination: General Examination: *CONSTITUTIONAL: Alert and oriented x3, no acute distress *GENERAL APPEARANCE OF PATIENT ill-appearing elderly male with acromegaly *EYES: pupils equal, round, reactive to light and accommodation, conjunctiva clear *CARDIOVASCULAR: RRR, peripheral edema, distal temperature normal, dorsalis pedis pulses normal. Refer to vital signs * MUSCULOSKELETAL: *GAIT AND STATION: Deferred *ASSESSMENT OF MUSCLE STRENGTH IN THE UPPER AND LOWER EXTREMITIES left deltoid and triceps are 2/5, left biceps and patient scheduler strength 3/5, left hip flexor, anterior tibialis and dorsal flexion of the left foot is 2/5 and the patient is able to move this extremity in a lateral plane but not against gravity. The right bicep, tricep, patient scheduler strength are 4/5, rt hip flexor, anterior tibialis and dorsiflexion of the right foot are 3/5. *MUSCLE TONE IN THE UPPER AND LOWER EXTREMITIES atrophic changes of the temporalis musculature and tongue atrophy seen as well. There is also atrophy identified in the bilateral hand intrinsics. He has a resting tremor of the right hand this morning and he is rigid in all 4 extremities most notably in the left upper and left lower. Neurological: *ORIENTATION to person, situation, time and place *LANGUAGE AND FUNCTION no significant aphasia or dysarthia was noted. *ATTENTION AND CONCENTRATION are normal *LANGUAGE FUNCTION no significant aphasia or dysarthia was noted. *FUND OF KNOWLEDGE aware of current events, past history, vocabulary *MENTAL attention span and concentration normal. *CN II optic fundi were normal, no papilledema noted. *CN III,IV, PERRLA extraocular eye movements were full, no nystagmus and no ptosis noted. *CN V shows normal sensation and jaw opens symmetrically. *CN VII shows normal facial movement symmetrically, upper and lower bilaterally. *CN VIII shows no significant hearing loss on exam *CN IX-Xpalate elevated symmetrically *CN XI normal strength in the sternocleidomastoid muscles, symmetrical shoulder shrugging. *CN XII tongue protruded in the midline, with normal strength and movement. Although, tongue atrophy was present on the right side *SENSORY EXAMINATION light touch intact *REFLEXES: deep tendon reflexes were absent diffusely, no pathological reflexes were noted. *CEREBELLAR TESTING abnormal finger to nose, & heel/knee/izquierdo diffusely on the left sided diffuse left-sided weakness *PAIN LEVEL 3/10 - left forearm with a dull ache; pain worse with movement of left arm and palpation Results - Laboratory Findings CBC and BMP: 01/13/19 03:55 01/13/19 03:55 Abnormal lab findings: Abnormal lab results WBC 12.7 K/mcL (4.3-11.1) H 01/11/19 10:55 RBC 3.44 M/mcL (4.19-5.50) L 01/13/19 03:55 Hgb 10.2 g/dL (12.9-16.9) L 01/13/19 03:55 Hct 31.7 % (37.5-50.1) L 01/13/19 03:55 RDW 14.6 % (11.5-14.5) H 01/12/19 06:17 Neutrophils # 10.6 K/mcL (1.6-8.9) H 01/11/19 10:55 Lymphocytes # 0.5 K/mcL (0.6-4.6) L 01/11/19 10:55 Monocytes # 1.4 K/mcL (0.0-1.3) H 01/11/19 10:55 Chloride 112 mEq/L (98-107) H 01/13/19 03:55 Carbon Dioxide 21 mEq/L (23-29) L 01/13/19 03:55 BUN 43 mg/dL (8-23) H 01/13/19 03:55 Creatinine 2.90 mg/dL (0.70-1.30) H 01/13/19 03:55 Est GFR ( Amer) 26 (> 60) L 01/13/19 03:55 Est GFR (Non-Af Amer) 21 (> 60) L 01/13/19 03:55 Calculated Osmolality 302 (280-300) H 01/13/19 03:55 Uric Acid 8.7 mg/dL (2.3-7.6) H 01/12/19 12:32 Calcium 7.8 mg/dL (8.6-10.3) L 01/13/19 03:55 Creatine Kinase 443 Units/L (30-223) H 01/13/19 03:55 Troponin I 0.04 ng/mL (< 0.04) H* 01/11/19 16:23 Ur Specific [place] 1.009 (1.010-1.025) L 01/11/19 12:08 Urine Blood Moderate (Negative) H 01/11/19 12:08 Urine Microscopic RBC 15-30 per hpf (0-3) H 01/11/19 12:08 Ur Squamous Epith Cells Moderate per lpf (None-Few) H 01/11/19 12:08 Protein/Creatinin Ratio 0.58 mg/mg (0.00-0.20) H 01/13/19 00:25 Urine Total Protein 48 mg/dL (1-14) H 01/13/19 00:25 Consult Discharge Plan - Plan Referrals: Earl Martin MD [Primary Care Provider] -
--- NOTE | 2019-01-13 09:38 | Nephrology Progress Note ---
Date of Encounter: 01/13/19 Time of Encounter: 09:36 - Assessment and Plan (1) Acute kidney injury Current Visit: Yes Status: Acute In August of this year, GFR was greater than 60. GFR is 21 today. MICKEY is likely related to dehydration secondary to the fall. He was down for approximately 24 hours. CK 443. Uric acid 8.7. Urine studies and retroperitoneal ultrasound also ordered. Continue IV hydration. Encouraged adequate PO intake. Strict I/O Avoid nephrotoxins and renal dose. (2) Benign prostate hyperplasia Current Visit: Yes Status: Chronic Per primary. Qualifiers: Lower urinary tract symptom presence: unspecified whether lower urinary tract symptoms present Qualified Code(s): N40.0 - Benign prostatic hyperplasia without lower urinary tract symptoms (3) Fall Current Visit: Yes Status: Acute Would suggest a social service consult for discussion about an extended care facility. Qualifiers: Encounter type: initial encounter Qualified Code(s): W19.XXXA - Unspecified fall, initial encounter (4) History of seizure Current Visit: Yes Status: Chronic Per primary. (5) Parkinson disease Current Visit: Yes Status: Chronic Neurology on board. Subjective Principal diagnosis: s/p fall Interval history: Pt seen and examined, doing well. Denies chest pain or shortness of breath. Denies nausea, vomiting, diarrhea. Admits to LLE weakness and LUE weakness. Objective - Vital Signs Vital signs: Vital Signs Temp Pulse Resp BP Pulse Ox 01/13/19 08:29 99 01/13/19 07:32 98.1 F 57 18 156/74 99 01/13/19 04:19 98.0 F 57 16 146/78 95 01/13/19 01:31 99.2 F 59 16 142/75 97 01/12/19 19:41 97.5 F L 62 16 142/73 96 01/12/19 19:21 64 01/12/19 16:09 97.5 F L 64 16 171/73 98 01/12/19 11:23 63 16 162/75 98 01/12/19 09:57 100 Intake and Output 01/12/19 01/13/19 01/13/19 23:59 07:59 15:59 Intake Total 1000 / 2120 1120 / 1120 Output Total 300 / 2250 1200 / 1200 Balance 700 / -130 -80 / -80 Intake: IV Fluids 1000 / 2000 1000 / 1000 0.9 % Sodium Chloride 1,000 ML 1000 / 2000 1000 / 1000 @ 125 mls/hr IVC .Q8H ISAI Rx#: [id number] Oral 120 / 120 Output: Urine 1200 / 1200 Catheter 300 / 1050 Other: Blood Glucose* 89 71 - General Appearance General appearance: Present: well-developed, well-nourished EENT: Present: ATNC, hearing intact, vision intact Neck: Present: supple Respiratory: Present: clear Cardiology: Present: no edema, normal S1, normal S2 Gastrointestinal: Present: normoactive bowel sounds, no tenderness, no guarding Integumentary: Present: no rash, warm and dry Neurologic: Present: alert and oriented x3 Additional Comments: LUE weakness LLE weakness noted. Musculoskeletal: Present: no deformities, no erythema Psychiatric: Present: mood/affect appropriate, cooperative - Lab 01/13/19 03:55 01/13/19 03:55 Most recent lab results 01/13/19 01/13/19 00:25 03:55 Calcium 7.8 L Urine Creatinine 83 Urine Sodium 65.5 Urine Total Protein 48 H Consult Discharge Plan - Plan Referrals: Earl Martin MD [Primary Care Provider] -
[2019-01-13] MEDS ORDERED: Perflutren Lipid Microsphere 1.3 ML in 0.9 % Sodium Chloride 8.7 ML IVP ONE (10:19)
--- NOTE | 2019-01-13 12:27 | Internal Med Progress Note ---
Hospitalist Progress Note - Encounter Date of Encounter: 01/13/19 Time of Encounter: 12:24 - Subjective Interval History: Evaluated patient earlier today. Feels that he is improving. Denies any chest pain or palpitations. Does continue to have left upper extremity and left lower extremity weakness. Awaiting MRI of the brain. Continues to have good urine output. - Exam Vitals: Temp Pulse Resp BP Pulse Ox 97.9 F 59 16 147/74 99 01/13/19 11:30 01/13/19 11:30 01/13/19 11:30 01/13/19 11:30 01/13/19 11:30 Exam: General: Patient is alert, no acute distress, oriented x 3 ENT: Mucous membranes moist Respiratory: Good respiratory effort. Normal breath sounds. No wheezing or crackles. Cardiovascular: Regular rate and rhythm. s1 and s2 normal No clicks, rubs, gallops, or murmurs. No pedal edema Abdomen: Abdomen is soft, nontender. Bowel sounds are present Musculoskeletal: Spontaneously moving all extremities Skin: warm, dry, intact. Neuro: Alert oriented x 3 resting tremor. Continues to have left upper and lower extremity weakness - Assessment and Plan (1) Fall Current Visit: Yes Status: Acute (2) Rhabdomyolysis Current Visit: Yes Status: Acute (3) Acute kidney injury Current Visit: Yes Status: Acute (4) Elevated troponin Current Visit: Yes Status: Acute (5) Leucocytosis Current Visit: Yes Status: Acute (6) Parkinson disease Current Visit: Yes Status: Chronic (7) Benign prostate hyperplasia Current Visit: Yes Status: Chronic (8) History of seizure Current Visit: Yes Status: Chronic (9) DVT prophylaxis Current Visit: Yes Status: Acute DVT Prophylaxis: On subcutaneous heparin - Summary of Assessment and Plan Summary of Assessment and Plan: Acute rhabdomyolysis with acute kidney injury: Continues to improve. CPK trending down. Renal function improving. Patient having good urine output. Nephrology following. Renal ultrasound done shows no obstructive uropathy. Patient does have prostate gland enlargement. We will check PSA New left-sided weakness. Uncertain onset. Patient only noticed it this morning. Consulted with neurology. Awaiting MRI of the head and C-spine. Echocardiogram does not show any PFO. Normal EF. Parkinson's disease: Continue Sinemet. BPH: Continue tamsulosin. History of seizure disorder: Continue Lamictal. Moderate risk for complications. DVT prophylaxis with subcutaneous heparin - Time Spent with Patient Total time spent is greater than 50% in coordination of care (as documented) at patient's floor/unit and/or counseling patient: Internal Medicine: Result - Labs CBC & Chem 7: 01/13/19 03:55 01/13/19 03:55 Labs: Short CBC 01/13/19 Range/Units 03:55 WBC 4.6 (4.3-11.1) K/mcL Hgb 10.2 L (12.9-16.9) g/dL Hct 31.7 L (37.5-50.1) % Plt Count 181 (140-400) K/mcL Neutrophils # 2.9 (1.6-8.9) K/mcL BMP 01/12/19 01/13/19 12:32 03:55 Sodium 141 Potassium 3.9 Chloride 112 H Carbon Dioxide 21 L BUN 43 H Creatinine 3.83 H 2.90 H Glucose 92 Calcium 7.8 L - Impressions Impressions Echocardiogram 01/12/19 14:04 Impressions: No evidence of PFO with agitated saline contrast. LVEF 55%. Asymmetric basal septal hypertrophy Mild mitral regurgitation. Mild anterior mitral valve leaflet prolapse. No evidence of pulmonary hypertension. Left Ventricular Wall Motion: Rest Echo Findings All wall segments showed normal motion. Findings: Study Quality * Technically sub-optimal due to poor echocardiographic windows. ECG Findings * Normal sinus rhythm. Interatrial Septum * No evidence of PFO with agitated saline contrast. Left Ventricle * LVEF 55%. * Asymmetric basal septal hypertrophy * Indeterminate diastolic function. * Normal LV chamber size. Right Ventricle * The right ventricle was not well visualized Left Atrium * Normal left atrial size. Right Atrium * Normal right atrial size. Aortic Valve * Aortic valve not well visualized. * No aortic regurgitation. * No aortic stenosis. Mitral Valve * Mitral valve not well visualized. * Mild mitral regurgitation.Mild anterior mitral valve leaflet prolapse. Tricuspid Valve * Trace tricuspid regurgitation. * No evidence of pulmonary hypertension. * Tricuspid valve not well visualized. * No tricuspid stenosis. Pulmonic Valve * Pulmonic valve not well visualized. Aorta * Normally sized aortic root. Pericardium * The pericardium appears normal. IVC * The IVC is not well evaluated. Pulmonary Artery * Pulmonary artery not well visualized. Retroperitoneum Ultrasound 01/12/19 16:00 IMPRESSION: 1. Echogenic debris layering within the urinary bladder. This may be due to cystitis. 2. Left renal cortical thinning. 3. No obstructive uropathy. 4. Prostate gland enlargement. Correlation with PSA recommended. D/ / Erna Cruz MD / Erna Cruz MD Interpreting Provider: Erna Cruz MD Consult Discharge Plan - Plan Referrals: Earl Martin MD [Primary Care Provider] - (1) Fall Qualifiers: Encounter type: initial encounter Qualified Code(s): W19.XXXA - Unspecified fall, initial encounter (2) Rhabdomyolysis Qualifiers: Rhabdomyolysis type: traumatic Encounter type: initial encounter Qualified Code(s): T79.6XXA - Traumatic ischemia of muscle, initial encounter (5) Leucocytosis Qualifiers: Leukocytosis type: leukemoid reaction Qualified Code(s): D72.823 - Leukemoid reaction (7) Benign prostate hyperplasia Qualifiers: Lower urinary tract symptom presence: unspecified whether lower urinary tract symptoms present Qualified Code(s): N40.0 - Benign prostatic hyperplasia without lower urinary tract symptoms
--- NOTE | 2019-01-13 16:20 | Electrocardiograph Report ---
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
[2019-01-14 05:28] LABS: Eosinophils # 0.2 K/mcL (0.0-0.6); Hematocrit 35.3 % (37.5-50.1); Hemoglobin 11.3 g/dL (12.9-16.9); Mean Corpuscular Hemoglobin 29.9 pg (28.0-33.3); Mean Corpuscular Volume 93.4 fL (83.0-100.0); Mean Platelet Volume 9.6 fL (9.4-12.4); Platelet Count 209 K/mcL (140-400); Red Blood Count 3.78 M/mcL (4.19-5.50); Red Cell Distribution Width 14.6 % (11.5-14.5); White Blood Count 5.1 K/mcL (4.3-11.1)
[2019-01-14 05:43] LABS: Calcium 8.3 mg/dL (8.6-10.3); Potassium 3.8 mEq/L (3.5-5.1)
[2019-01-14] MEDS: *HR* Heparin 5,000 UNIT/ML VIAL SQ SCH ×2 (06:11→17:10)
[2019-01-14] MEDS: 0.9 % Sodium Chloride 1,000 ML IVC SCH ×4 (06:12→22:23)
[2019-01-14 06:19] LABS: Lymphocytes # 0.5 K/mcL (0.6-4.6); Monocytes # 1.1 K/mcL (0.0-1.3); Neutrophils # 3.3 K/mcL (1.6-8.9)
[2019-01-14 06:20] LABS: Platelet Estimate Normal (Normal)
[2019-01-14] MEDS: Carbidopa/Levodopa ER 50/200 TABLET PO SCH ×2 (09:23→17:10)
[2019-01-14] MEDS: Hydrocortisone 10 MG TABLET PO SCH ×2 (09:23→17:09)
[2019-01-14] MEDS: Aspirin 81 MG TAB.CHEW PO SCH (09:24)
[2019-01-14] MEDS: lamoTRIgine 100 MG TABLET PO SCH ×3 (09:24→22:38)
--- NOTE | 2019-01-14 10:11 | Neurology Progress Note ---
Date of Encounter: 01/14/19 Time of Encounter: 10:09 Assessment and Plan (1) Left-sided weakness Current Visit: Yes Status: Acute Neurology consulting for c/o diffuse left sided weakness and sensory deficits Diffuse left-sided weakness with sensory loss are persistent but his strength is improving today; no new neurological deficits found on exam today. MRI brain negative for an acute ischemic event CT C-spine without acute findings CT head negative for acute findings Carotid duplex scan appears to show nonstenotic plaque bilaterally MRI of the Cervical spine did identify some [id number] cervical spinal canal narrowing but not significant enough to suspect it to cause diffuse left sided weakness. There was moderate right but no significant left neural foraminal narrowing. Overall, his weakness has improved. 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 PLAN: Continue ASA and Statin medications C/W medical and supportive care for MICKEY and Rhabdomyolysis per primary team -Renal fx has improved Scr 2.09 today GFR is 31 and CK is 506 Continue to treat underlying medical issues Recommend PT/OT consultation -may benefit from inpatient placement (2) History of seizure Current Visit: Yes Status: Acute (3) Parkinson disease Current Visit: Yes Status: Chronic (4) Rhabdomyolysis Current Visit: Yes Status: Acute Qualifiers: Rhabdomyolysis type: traumatic Encounter type: initial encounter Qualified Code(s): T79.6XXA - Traumatic ischemia of muscle, initial encounter Subjective Principal diagnosis: s/p fall Interval history: The patient was seen in follow-up today for diffuse left-sided weakness and sensory loss. Diffuse left-sided weakness persists but is somewhat better this morning. MRI of the brain was completed and negative for any acute infarct. MRI of the C-spine revealing [id number] central canal narrowing at C3-4 but otherwise no acute findings. Imaging findings discussed with the patient. His main concern today in regards to when he is able to discharge and regards to forearm pain. Objective - Constitutional Vitals: Temp Pulse Resp BP Pulse Ox 98.2 F 71 16 148/80 100 01/14/19 09:00 01/14/19 09:00 01/14/19 09:00 01/14/19 09:00 01/14/19 09:00 Exam: Examination: General Examination: *CONSTITUTIONAL: Alert and oriented x3, no acute distress *GENERAL APPEARANCE OF PATIENT ill-appearing elderly male with acromegaly *EYES: pupils equal, round, reactive to light and accommodation, conjunctiva clear *CARDIOVASCULAR: RRR, peripheral edema, distal temperature normal, dorsalis pedis pulses normal. Refer to vital signs * MUSCULOSKELETAL: *GAIT AND STATION: Deferred *ASSESSMENT OF MUSCLE STRENGTH IN THE UPPER AND LOWER EXTREMITIES left deltoid, triceps biceps and wind energy technician strength are 3/5, left hip flexor, anterior tibialis and dorsal flexion of the left foot is 3/5 which is an improvement from previous day. The right bicep, tricep, wind energy technician strength are 4/5, rt hip flexor, anterior tibialis and dorsiflexion of the right foot are 3/5. *MUSCLE TONE IN THE UPPER AND LOWER EXTREMITIES atrophic changes of the temporalis musculature and tongue atrophy seen as well. There is also atrophy identified in the bilateral hand intrinsics. He has a resting tremor of the right hand and he is rigid in all 4 extremities most notably in the left upper and left lower. Neurological: *ORIENTATION to person, situation, time and place *LANGUAGE AND FUNCTION no significant aphasia or dysarthia was noted. *ATTENTION AND CONCENTRATION are normal *LANGUAGE FUNCTION no significant aphasia or dysarthia was noted. *FUND OF KNOWLEDGE aware of current events, past history, vocabulary *MENTAL attention span and concentration normal. *CN II optic fundi were normal, no papilledema noted. *CN III,IV, PERRLA extraocular eye movements were full, no nystagmus and no ptosis noted. *CN V shows normal sensation and jaw opens symmetrically. *CN VII shows normal facial movement symmetrically, upper and lower bilaterally. *CN VIII shows no significant hearing loss on exam *CN IX-Xpalate elevated symmetrically *CN XI normal strength in the sternocleidomastoid muscles, symmetrical shoulder shrugging. *CN XII tongue protruded in the midline, with normal strength and movement. Although, tongue atrophy was present on the right side *SENSORY EXAMINATION light touch intact *REFLEXES: deep tendon reflexes were absent diffusely, no pathological reflexes were noted. *CEREBELLAR TESTING abnormal finger to nose, & heel/knee/izquierdo diffusely on the left sided diffuse left-sided weakness *PAIN LEVEL 3/10 - left forearm with a dull ache; pain worse with movement of left arm and palpation Results - Laboratory Findings CBC and BMP: 01/14/19 04:15 01/14/19 04:15 Abnormal lab findings: Abnormal lab results WBC 12.7 K/mcL (4.3-11.1) H 01/11/19 10:55 RBC 3.78 M/mcL (4.19-5.50) L 01/14/19 04:15 Hgb 11.3 g/dL (12.9-16.9) L 01/14/19 04:15 Hct 35.3 % (37.5-50.1) L 01/14/19 04:15 RDW 14.6 % (11.5-14.5) H 01/14/19 04:15 Neutrophils # 10.6 K/mcL (1.6-8.9) H 01/11/19 10:55 Lymphocytes # 0.5 K/mcL (0.6-4.6) L 01/14/19 04:15 Monocytes # 1.4 K/mcL (0.0-1.3) H 01/11/19 10:55 Chloride 112 mEq/L (98-107) H 01/14/19 04:15 Carbon Dioxide 21 mEq/L (23-29) L 01/13/19 03:55 BUN 35 mg/dL (8-23) H 01/14/19 04:15 Creatinine 2.09 mg/dL (0.70-1.30) H 01/14/19 04:15 Est GFR ( Amer) 38 (> 60) L 01/14/19 04:15 Est GFR (Non-Af Amer) 31 (> 60) L 01/14/19 04:15 POC Glucose 69 mg/dL (70-99) L 01/13/19 11:35 Calculated Osmolality 308 (280-300) H 01/14/19 04:15 Uric Acid 8.7 mg/dL (2.3-7.6) H 01/12/19 12:32 Calcium 8.3 mg/dL (8.6-10.3) L 01/14/19 04:15 Creatine Kinase 506 Units/L (30-223) H 01/14/19 04:15 Troponin I 0.04 ng/mL (< 0.04) H* 01/11/19 16:23 Prostate Specific Ag 4.99 ng/mL (Less than 4.00) H 01/14/19 04:15 Ur Specific [place] 1.009 (1.010-1.025) L 01/11/19 12:08 Urine Blood Moderate (Negative) H 01/11/19 12:08 Urine Microscopic RBC 15-30 per hpf (0-3) H 01/11/19 12:08 Ur Squamous Epith Cells Moderate per lpf (None-Few) H 01/11/19 12:08 Protein/Creatinin Ratio 0.58 mg/mg (0.00-0.20) H 01/13/19 00:25 Urine Total Protein 48 mg/dL (1-14) H 01/13/19 00:25 Consult Discharge Plan - Plan Referrals: Earl Martin MD [Primary Care Provider] -
--- NOTE | 2019-01-14 10:55 | Nephrology Progress Note ---
Date of Encounter: 01/14/19 Time of Encounter: 10:53 - Assessment and Plan (1) Acute kidney injury Current Visit: Yes Status: Acute In August of this year, GFR was greater than 60. GFR is 31 today. MICKEY is likely related to dehydration secondary to the fall. He was down for approximately 24 hours. CK 443. Uric acid 8.7. Urine studies and retroperitoneal ultrasound completed. Encouraged adequate PO intake. Strict I/O Avoid nephrotoxins and renal dose. F/U with Dr. Avalos in 4-6 weeks, BMP 1 week before. We will sign off at this time, please reconsult if needed. (2) Benign prostate hyperplasia Current Visit: Yes Status: Chronic Per primary. Qualifiers: Lower urinary tract symptom presence: unspecified whether lower urinary tract symptoms present Qualified Code(s): N40.0 - Benign prostatic hyperplasia without lower urinary tract symptoms (3) Fall Current Visit: Yes Status: Acute Would suggest a social service consult for discussion about an extended care facility. Qualifiers: Encounter type: initial encounter Qualified Code(s): W19.XXXA - Unspecified fall, initial encounter (4) History of seizure Current Visit: Yes Status: Chronic Per primary. (5) Parkinson disease Current Visit: Yes Status: Chronic Neurology on board. Subjective Principal diagnosis: s/p fall Interval history: Pt seen and examined, doing well. Denies chest pain or shortness of breath. Preston es nausea, vomiting, diarrhea. Admits to LLE weakness and LUE weakness. Objective - Vital Signs Vital signs: Vital Signs Temp Pulse Resp BP Pulse Ox 01/14/19 09:00 98.2 F 71 16 148/80 100 01/14/19 07:28 97.8 F 66 18 152/80 99 01/14/19 04:13 98.6 F 65 15 155/81 98 01/14/19 00:31 98.3 F 66 16 156/88 98 01/13/19 16:20 99.0 F 61 18 167/80 99 01/13/19 11:30 97.9 F 59 16 147/74 99 Intake and Output 01/13/19 01/14/19 01/14/19 23:59 07:59 15:59 Intake Total 1000 / 3240 Output Total 825 / 2525 700 / 700 Balance 175 / 715 -700 / -700 Intake: IV Fluids 1000 / 3000 0.9 % Sodium Chloride 1,000 ML 1000 / 3000 @ 125 mls/hr IVC .Q8H [facility] Rx#: [id number] Output: Catheter 825 / 825 700 / 700 Other: Blood Glucose* 93 74 - General Appearance General appearance: Present: well-developed, well-nourished EENT: Present: ATNC, hearing intact, vision intact Neck: Present: supple Respiratory: Present: clear Cardiology: Present: no edema, normal S1, normal S2 Gastrointestinal: Present: normoactive bowel sounds, no tenderness, no guarding Integumentary: Present: no rash, warm and dry Neurologic: Present: alert and oriented x3 Additional Comments: LUE AND LLE weakness noted. Musculoskeletal: Present: no deformities, no erythema Psychiatric: Present: mood/affect appropriate, cooperative - Lab 01/14/19 04:15 01/14/19 04:15 Most recent lab results 01/14/19 04:15 Calcium 8.3 L Consult Discharge Plan - Plan Referrals: Earl Martin MD [Primary Care Provider] -
--- NOTE | 2019-01-14 11:42 | Internal Med Progress Note ---
Hospitalist Progress Note - Encounter Date of Encounter: 01/14/19 Time of Encounter: 08:00 - Subjective Interval History: Reports left shoulder and neck spasm but otherwise denies any worsening L sided weakness. No chest pain, SOB, or cough - Exam Vitals: Temp Pulse Resp BP Pulse Ox 98.2 F 71 16 148/80 100 01/14/19 09:00 01/14/19 09:00 01/14/19 09:00 01/14/19 09:00 01/14/19 09:00 Exam: General: Patient is alert, no acute distress, oriented x 3 Respiratory: Good respiratory effort. Normal breath sounds. No wheezing or crackles. Cardiovascular: Regular rate and rhythm. s1 and s2 normal No clicks, rubs, gallops, or murmurs. No pedal edema Abdomen: Abdomen is soft, nontender. 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 Tenderness on palpation to L trapezius and deltoid region Skin: warm, dry, intact. Neuro: Alert oriented x 3. Resting tremor - Assessment and Plan (1) Acute kidney injury Current Visit: Yes Status: Acute Assessment and Plan: improving on IVF US unremarkable, good urine output appreciate nephrology input, for outpatient follow up in 4-6 weeks voiding trial prior to d/c although he may not be successful given his prostatomegaly (2) Fall Current Visit: Yes Status: Acute Assessment and Plan: Likely in mechanical, for PT/OT (3) Rhabdomyolysis Current Visit: Yes Status: Acute Assessment and Plan: on IVF (4) Left-sided weakness Current Visit: Yes Status: Acute Assessment and Plan: MRI head and C-spine unremarkable, likely aggravated by L shoulder/neck spasm no PFO on echo, carotid doppler unremarkable trial of flexeril PT/OT (5) Elevated troponin Current Visit: Yes Status: Acute Assessment and Plan: flat and adynamic, likely demand ischemia from severe MICKEY echo showed preserved EF (6) Parkinson disease Current Visit: Yes Status: Chronic (7) Benign prostate hyperplasia Current Visit: Yes Status: Chronic Assessment and Plan: PSA elevated at 4.99, magallon inserted currently voiding trial prior to d/c continue flomax outpatient Urology follow up (8) History of seizure Current Visit: Yes Status: Chronic Assessment and Plan: continue home meds (9) DVT prophylaxis Current Visit: Yes Status: Acute Assessment and Plan: SQ heparin - Time Spent with Patient Total time spent is greater than 50% in coordination of care (as documented) at patient's floor/unit and/or counseling patient: 25 - 35 minutes Plan of Care Discussed with: patient Internal Medicine: Result - Labs CBC & Chem 7: 01/14/19 04:15 01/14/19 04:15 Labs: Short CBC 01/14/19 Range/Units 04:15 WBC 5.1 (4.3-11.1) K/mcL Hgb 11.3 L (12.9-16.9) g/dL Hct 35.3 L (37.5-50.1) % Plt Count 209 (140-400) K/mcL Neutrophils # 3.3 (1.6-8.9) K/mcL BMP 01/14/19 04:15 Sodium 145 Potassium 3.8 Chloride 112 H Carbon Dioxide 23 BUN 35 H Creatinine 2.09 H Glucose 96 Calcium 8.3 L - Impressions Impressions Echocardiogram 01/12/19 14:04 Impressions: No evidence of PFO with agitated saline contrast. LVEF 55%. Asymmetric basal septal hypertrophy Mild mitral regurgitation. Mild anterior mitral valve leaflet prolapse. No evidence of pulmonary hypertension. Left Ventricular Wall Motion: Rest Echo Findings All wall segments showed normal motion. Findings: Study Quality * Technically sub-optimal due to poor echocardiographic windows. ECG Findings * Normal sinus rhythm. Interatrial Septum * No evidence of PFO with agitated saline contrast. Left Ventricle * LVEF 55%. * Asymmetric basal septal hypertrophy * Indeterminate diastolic function. * Normal LV chamber size. Right Ventricle * The right ventricle was not well visualized Left Atrium * Normal left atrial size. Right Atrium * Normal right atrial size. Aortic Valve * Aortic valve not well visualized. * No aortic regurgitation. * No aortic stenosis. Mitral Valve * Mitral valve not well visualized. * Mild mitral regurgitation.Mild anterior mitral valve leaflet prolapse. Tricuspid Valve * Trace tricuspid regurgitation. * No evidence of pulmonary hypertension. * Tricuspid valve not well visualized. * No tricuspid stenosis. Pulmonic Valve * Pulmonic valve not well visualized. Aorta * Normally sized aortic root. Pericardium * The pericardium appears normal. IVC * The IVC is not well evaluated. Pulmonary Artery * Pulmonary artery not well visualized. Cervical Spine MRI 01/12/19 14:35 IMPRESSION: Spondylotic changes as described with minimal grade 1 anterolisthesis at C4-5 and C5-6. [id number] central canal narrowing at C3-4. No abnormal signal seen in the cervical cord. D/ / Karel Bui MD / Karel Bui MD Interpreting Provider: Karel Bui MD Brain MRI 01/12/19 17:03 IMPRESSION: Minimal chronic small ischemic disease. Chronic lacune infarct identified left midbrain. Small focus of gliosis left occipital lobe. No evidence acute stroke, midline shift or mass effect. D/ / Cecilio Lee / Cecilio Lee Interpreting Provider: Cecilio Lee Consult Discharge Plan - Plan Referrals: Earl Martin MD [Primary Care Provider] - (2) Fall Qualifiers: Encounter type: initial encounter Qualified Code(s): W19.XXXA - Unspecified fall, initial encounter (3) Rhabdomyolysis Qualifiers: Rhabdomyolysis type: traumatic Encounter type: initial encounter Qualified Code(s): T79.6XXA - Traumatic ischemia of muscle, initial encounter (7) Benign prostate hyperplasia Qualifiers: Lower urinary tract symptom presence: unspecified whether lower urinary tract symptoms present Qualified Code(s): N40.0 - Benign prostatic hyperplasia without lower urinary tract symptoms
[2019-01-14] MEDS: Acetaminophen 325 MG TABLET PO PRN (17:09)
[2019-01-14] MEDS: Silvasorb 44.4 ML TUBE TP SCH ×3 (17:10→22:23)
[2019-01-15] MEDS: *HR* Heparin 5,000 UNIT/ML VIAL SQ SCH ×2 (05:54→18:27)
[2019-01-15] MEDS: 0.9 % Sodium Chloride 1,000 ML IVC SCH (05:55)
[2019-01-15 06:30] LABS: Calcium 8.1 mg/dL (8.6-10.3); Potassium 3.8 mEq/L (3.5-5.1)
[2019-01-15] MEDS: Hydrocortisone 10 MG TABLET PO SCH ×2 (08:52→16:59)
[2019-01-15] MEDS: lamoTRIgine 100 MG TABLET PO SCH ×2 (08:52→21:23)
[2019-01-15] MEDS: Carbidopa/Levodopa ER 50/200 TABLET PO SCH ×2 (08:52→16:58)
[2019-01-15] MEDS: Aspirin 81 MG TAB.CHEW PO SCH (08:52)
--- NOTE | 2019-01-15 13:03 | Internal Med Progress Note ---
Hospitalist Progress Note - Encounter Date of Encounter: 01/15/19 Time of Encounter: 10:30 - Subjective Interval History: No acute events overnight. No chest pain, headache, focal weakness/numbness, or N/V. - Exam Vitals: Temp Pulse Resp BP Pulse Ox 98.1 F 68 20 162/74 97 01/15/19 12:04 01/15/19 12:04 01/15/19 12:04 01/15/19 12:04 01/15/19 12:04 Exam: General: Patient is alert, no acute distress, oriented x 3 Respiratory: Good respiratory effort. Normal breath sounds. No wheezing or crackles. Cardiovascular: Regular rate and rhythm. s1 and s2 normal No clicks, rubs, gallops, or murmurs. No pedal edema Abdomen: Abdomen is soft, nontender. 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 Tenderness on palpation to L trapezius and deltoid region Skin: warm, dry, intact. Neuro: Alert oriented x 3. Resting tremor - Assessment and Plan (1) Acute kidney injury Current Visit: Yes Status: Acute Assessment and Plan: improving on IVF US unremarkable, good urine output developed hypernatremia and hyperchloremia. Will stop IVF appreciate nephrology input, for outpatient follow up in 4-6 weeks voiding trial prior to d/c although he may not be successful given his prostatomegaly (2) Fall Current Visit: Yes Status: Acute Assessment and Plan: Likely in mechanical, for PT/OT a/w placement (3) Rhabdomyolysis Current Visit: Yes Status: Acute Assessment and Plan: resolving, will d/c IVF today as above (4) Left-sided weakness Current Visit: Yes Status: Resolved Assessment and Plan: MRI head and C-spine unremarkable, likely aggravated by L shoulder/neck spasm no PFO on echo, carotid doppler unremarkable trial of flexeril PT/OT (5) Elevated troponin Current Visit: Yes Status: Acute Assessment and Plan: flat and adynamic, likely demand ischemia from severe MICKEY echo showed preserved EF (6) Parkinson disease Current Visit: Yes Status: Chronic Assessment and Plan: Continue the patient on home medications. (7) Benign prostate hyperplasia Current Visit: Yes Status: Chronic Assessment and Plan: PSA elevated at 4.99, magallon inserted currently voiding trial prior to d/c continue flomax outpatient Urology follow up (8) History of seizure Current Visit: Yes Status: Chronic Assessment and Plan: continue home meds (9) Moderate protein-calorie malnutrition Current Visit: Yes Status: Acute Assessment and Plan: follow with nutrition (10) DVT prophylaxis Current Visit: Yes Status: Acute Assessment and Plan: SQ heparin - Time Spent with Patient Total time spent is greater than 50% in coordination of care (as documented) at patient's floor/unit and/or counseling patient: 25 - 35 minutes Plan of Care Discussed with: patient Internal Medicine: Result - Labs CBC & Chem 7: 01/14/19 04:15 01/15/19 05:02 Labs: BMP 01/15/19 05:02 Sodium 149 H Potassium 3.8 Chloride 111 H Carbon Dioxide 21 L BUN 27 H Creatinine 1.77 H Glucose 82 Calcium 8.1 L Consult Discharge Plan - Plan Referrals: Earl Martin MD [Primary Care Provider] - ([facility]) (2) Fall Qualifiers: Encounter type: initial encounter Qualified Code(s): W19.XXXA - Unspecified fall, initial encounter (3) Rhabdomyolysis Qualifiers: Rhabdomyolysis type: traumatic Encounter type: initial encounter Qualified Code(s): T79.6XXA - Traumatic ischemia of muscle, initial encounter (7) Benign prostate hyperplasia Qualifiers: Lower urinary tract symptom presence: unspecified whether lower urinary tract symptoms present Qualified Code(s): N40.0 - Benign prostatic hyperplasia without lower urinary tract symptoms
[2019-01-15] MEDS ORDERED: *HR* Metoprolol 5 MG/5 ML VIAL IVP SCH (13:14)
[2019-01-15] MEDS ORDERED: *HR* Metoprolol 5 MG/5 ML VIAL IVP PRN (13:21)
[2019-01-15] MEDS ORDERED: Ringers Solution, Lactated 1,000 ML ONE ×2 (13:49→16:56)
[2019-01-15] MEDS: Ringers Solution, Lactated 500 ML IVC ONE ×2 (14:00→15:38)
[2019-01-15] MEDS ORDERED: Ringers Solution, Lactated 1,000 ML IVC SCH (14:00)
[2019-01-15 14:59] LABS: Basophils % 0.5 %; Eosinophils # 0.2 K/mcL (0.0-0.6); Eosinophils % 2.6 %; Hematocrit 37.4 % (37.5-50.1); Immature Granulocytes % 1.1 % (0-4); Lymphocytes # 1.1 K/mcL (0.6-4.6); Lymphocytes % 19.2 %; Mean Corpuscular HGB Conc 31.8 g/dL (31.6-35.5); Mean Corpuscular Hemoglobin 29.8 pg (28.0-33.3); Mean Corpuscular Volume 93.7 fL (83.0-100.0); Mean Platelet Volume 9.5 fL (9.4-12.4); Monocytes % 17.3 %; Neutrophils # 3.4 K/mcL (1.6-8.9); Platelet Count 200 K/mcL (140-400); Red Blood Count 3.99 M/mcL (4.19-5.50); Red Cell Distribution Width 14.6 % (11.5-14.5); Segmented Neutrophils % 59.3 %
[2019-01-15 15:02] LABS: Hemoglobin 11.9 g/dL (12.9-16.9); White Blood Count 5.7 K/mcL (4.3-11.1)
[2019-01-15 15:21] LABS: BUN/Creatinine Ratio 17 (6-26); Blood Urea Nitrogen 27 mg/dL (8-23); Calcium 8.2 mg/dL (8.6-10.3); Carbon Dioxide 24 mEq/L (23-29); Chloride 112 mEq/L (98-107); Glucose 79 mg/dL (70-105); Osmolality,Calculated 302 (280-300); Potassium 3.7 mEq/L (3.5-5.1); Sodium 144 mEq/L (136-145); Troponin I < 0.03 ng/mL (< 0.04); eGFR For African Americans 51 (> 60); eGFR For Non-African Americans 42 (> 60)
[2019-01-15] MEDS ORDERED: Ringers Solution, Lactated 250 ML IVC PRN ×2 (15:25→15:28)
[2019-01-15 15:35] LABS: Thyroid Stimulating Hormone 0.477 mcIU/mL (0.340-5.600)
[2019-01-15] MEDS ORDERED: Ringers Solution, Lactated 500 ML IVC PRN ×2 (15:40→16:00)
[2019-01-15] MEDS ORDERED: Ringers Solution, Lactated 1,000 ML IVC PRN (15:45)
[2019-01-15 16:31] LABS: Magnesium 1.5 mg/dL (1.6-2.6)
[2019-01-15 16:51] LABS: Triiodothyronine (T3) Free 1.87 pg/mL (2.50-3.90)
[2019-01-15] MEDS: Ringers Solution, Lactated 1,000 ML IVC SCH (18:26)
[2019-01-15] MEDS: Acetaminophen 325 MG TABLET PO PRN (21:25)
[2019-01-16 02:29] LABS: Calcium 7.8 mg/dL (8.6-10.3); Magnesium 1.3 mg/dL (1.6-2.6); Potassium 3.7 mEq/L (3.5-5.1)
[2019-01-16] MEDS: Silvasorb 44.4 ML TUBE TP SCH (03:59)
[2019-01-16] MEDS: Ringers Solution, Lactated 1,000 ML IVC SCH (03:59)
[2019-01-16] MEDS: *HR* Heparin 5,000 UNIT/ML VIAL SQ SCH ×2 (05:20→17:40)
[2019-01-16] MEDS: Hydrocortisone 10 MG TABLET PO SCH ×2 (08:36→17:40)
[2019-01-16] MEDS: lamoTRIgine 100 MG TABLET PO SCH (08:36)
[2019-01-16] MEDS: Carbidopa/Levodopa ER 50/200 TABLET PO SCH ×2 (08:37→17:40)
[2019-01-16] MEDS: Aspirin 81 MG TAB.CHEW PO SCH (08:37)
[2019-01-16] MEDS ORDERED: Ringers Solution, Lactated 1,000 ML IVC SCH (08:37)
--- NOTE | 2019-01-16 10:04 | Cardiology Consult Note ---
<Trent García - Last Filed: 01/16/19 10:58> Date of Encounter: 01/16/19 Time of Encounter: 08:00 Assessment and Plan (1) Atrial fibrillation with RVR Current Visit: Yes Status: Acute H/o PAF per although not documented in out-pt cardiology notes. Runs of atrial tachycardia seen previously. Developed atrial fibrillation in the setting of rhabdo and dehydration. Now NSR with rate controlled PAF. Runs of narrow complex tachycardia seen. Not clear that it is NSVT-unable to catch on EKG. Will reviewed with Dr. Mehta. No re-occurrence overnight. EKG- atrial fibrillation with RVR. No acute ST changes. Baseline EKG SR with LBBB. TTE No evidence of PFO with agitated saline contrast. LVEF 55%. Asymmetric basal septal hypertrophy Mild mitral regurgitation. Mild anterior mitral valve leaflet prolapse. No evidence of pulmonary hypertension. O.477. Historically not on fpc AC due to falls per . Patient states that he does not want AC but wanted to discuss with niece. He is a fall risk. CHADS VASc 4 for HTN, age, CVA (seen on MRI). High risk of stroke discussed with patient and he voiced understanding. Consider NOAC if he decides to take AC. Increase metoprolol and continue asa. Discussion w patient/family: The assessment and plan as outlined above was discussed with the patient and/or family members who expressed understanding and agreement. All questions were answered. Thank you for involving us in the care of your patient. Please call with any questions. History of Present Illness Consult date: 01/15/19 Requesting physician: Joseph Padilla Consult reason: new atrial fibrillation, NSVT Chief complaint: Weakness History of present illness: Mr. Starkey is a 78 year old male with past medical history significant for acromegaly, s/p pituitary surgery, parkinson's disease, seizure disorder, mitral valve prolapse, and thyroid disease. He presented to the hospital after falling at home. He was found to have rhabdomylosis and neurology is following to r/o CVA due to left sided weakness. Yesterday he developed atrial fibrillation with RVR and possible runs NSVT. He was treated with IV metoprolol and IV fluid and he converted back to NSR with PAC. There is concern for dehydration and malnutrition. His estranged called yesterday and confirmed prior cardiac history and history of afib. He was not placed on fpc AC in the past due to fall risk. Past Med Surg Social Fam HX - Past Medical History Medical history: atrial fibrillation, hypertension, seizures, thyroid disease, other Additional medical history: gout, parkinsons, BPH Psychiatric history: no psych history - Past Surgical History Surgical History: herniorrhaphy, other Additional surgical history: mitral valve prolapse, - Social History Smoking Status: Never smoker Smokeless Tobacco Status: No Alcohol use: none Drug use: none Medications and Allergies Alfuzosin HCl [Uroxatral] 10 mg PO DAILY 01/11/19 [History] Carbidopa/Levodopa ER 50/200 [Sinemet ER 50-200 TAB] 0.5 tab PO 0900 01/11/19 [History] Carbidopa/Levodopa ER 50/200 [Sinemet ER 50-200 TAB] 1 tab PO 1700 01/11/19 [History] Cholecalciferol (D-3) [Vitamin D] 1,000 unit PO DAILY 01/11/19 [History] Flaxseed Oil [Raymond-3 Flaxseed Oil] 1,000 mg PO DAILY 01/11/19 [History] Hydrocortisone [Cortef] 10 mg PO BID 01/11/19 [History] Levothyroxine Sodium [Synthroid] 200 mcg PO DAILY 01/11/19 [History] Omeprazole [PriLOSEC] 20 mg PO DAILY 01/11/19 [History] Solifenacin Succinate [Vesicare] 10 mg PO DAILY 01/11/19 [History] Testosterone Cypionate [Depo-Testosterone] 200 mg IM Q18D 01/11/19 [History] lamoTRIgine [Lamotrigine] 150 mg PO BID 01/11/19 [History] Allergy/AdvReac Type Severity Reaction Status Date / Time No Known Allergies Allergy Verified 01/11/19 13:18 All Systems Review: The remainder of the systems were reviewed and are negative - Constitutional Constitutional: anorexia, fatigue, weakness Physical Examination Vital Signs, Last 4 Hours Temp Pulse Resp BP Pulse Ox 01/16/19 07:44 98.0 F 72 18 150/95 98 General: Conversant, No Apparent Distress, Other (chachetic) HEENT: Atraumatic, Normocephaly, Mucus Membranes Moist Neck: No JVD, Normal carotid pulses Cardiac: Reg Rate and Rhythm, Normal S1 and S2, No Murmur Lungs: Normal Breath Sounds, No Wheeze, Rales, Rhonchi Neuro: Alert and responsive, No focal deficits noted, Other (genralized weakness, rigid movements/) Abdomen: Soft, Non-Tender Skin: No rashes noted on visualized skin Musculoskeletal: No Chest Wall Tenderness Extremities: No Clubbing, No Cyanosis, No Edema, Normal Pulses Results 01/15/19 14:48 01/16/19 01:52 Lab Results 01/15/19 01/15/19 01/15/19 14:48 14:48 21:43 WBC 5.7 Hgb 11.9 L Hct 37.4 L Plt Count 200 Sodium 144 Potassium 3.7 Chloride 112 H Carbon Dioxide 24 BUN 27 H Creatinine 1.60 H Glucose 79 Calcium 8.2 L Magnesium 1.5 L Troponin I < 0.03 0.04 H* TSH 0.477 01/16/19 01:52 WBC Hgb Hct Plt Count Sodium 143 Potassium 3.7 Chloride 114 H Carbon Dioxide 22 L BUN 26 H Creatinine 1.55 H Glucose 91 Calcium 7.8 L Magnesium 1.3 L Troponin I TSH - Imaging and Cardiology Echo: report reviewed - EKG Interpretation EKG results cardiology: personally reviewed Consult Discharge Plan - Plan Referrals: Earl Martin MD [Primary Care Provider] - ([facility]) <Meliza Mehta - Last Filed: 01/16/19 12:27> Date of Encounter: 01/16/19 - Attending Attestation I have personally performed a face to face evaluation on this patient. I have reviewed and agree with the care plan. History and Exam by me shows: 78-year-old male multiple cardiac risk factors presents with A. fib RVR possible paroxysmal runs of aberrantly SVT intermittently currently sinus rhythm. Patient high risk for CVA with history of paroxysmal atrial fibrillation but declines anticoagulation. No evidence of acute CVA but is mechanical fall. Os ejection fraction preserved at 55%. Assessment and Plan Discussion w patient/family: The assessment and plan as outlined above was discussed with the patient and/or family members who expressed understanding and agreement. All questions were answered. Thank you for involving us in the care of your patient. Please call with any questions. History of Present Illness History of present illness: Mr. Starkey is a 78 year old male All Systems Review: The remainder of the systems were reviewed and are negative Physical Examination Vital Signs, Last 4 Hours Temp Pulse Resp BP Pulse Ox 01/16/19 11:25 97.5 F L 59 15 137/67 98 Results 01/15/19 14:48 01/16/19 01:52 Lab Results 01/15/19 01/15/19 01/15/19 14:48 14:48 21:43 WBC 5.7 Hgb 11.9 L Hct 37.4 L Plt Count 200 Sodium 144 Potassium 3.7 Chloride 112 H Carbon Dioxide 24 BUN 27 H Creatinine 1.60 H Glucose 79 Calcium 8.2 L Magnesium 1.5 L Troponin I < 0.03 0.04 H* TSH 0.477 01/16/19 01:52 WBC Hgb Hct Plt Count Sodium 143 Potassium 3.7 Chloride 114 H Carbon Dioxide 22 L BUN 26 H Creatinine 1.55 H Glucose 91 Calcium 7.8 L Magnesium 1.3 L Troponin I TSH
[2019-01-16 12:56] LABS: Troponin I 0.04 ng/mL (< 0.04)
--- NOTE | 2019-01-16 15:51 | Internal Med Progress Note ---
Hospitalist Progress Note - Encounter Date of Encounter: 01/16/19 Time of Encounter: 12:30 - Subjective Interval History: improvement in BP and HR noted overnight after boluses of IVF. Mentation has also returned to his baseline. Denies any chest pain, palpitation, or LE swelling. No fever overnight - Exam Vitals: Temp Pulse Resp BP Pulse Ox 97.5 F L 59 15 137/67 98 01/16/19 11:25 01/16/19 11:25 01/16/19 11:25 01/16/19 11:25 01/16/19 11:25 Exam: General: Patient is alert, no acute distress, oriented x 3 Respiratory: Good respiratory effort. Normal breath sounds. No wheezing or crackles. Cardiovascular: Normal rate and rhythm. s1 and s2 normal No clicks, rubs, gallops, or murmurs. No pedal edema Abdomen: Abdomen is soft, nontender. Bowel sounds are present Skin: warm, dry, intact. Neuro: Alert oriented x 3. Resting tremor - Assessment and Plan (1) Acute kidney injury Current Visit: Yes Status: Acute Assessment and Plan: improving on IVF US unremarkable, good urine output after stopping IVF yesterday, developed hypotension and afib with RVR that resolved with boluses of IVF. Will continue LR today but at decreased rate appreciate nephrology input, for outpatient follow up in 4-6 weeks voiding trial prior to d/c although he may not be successful given his prostatomegaly (2) Atrial fibrillation with RVR Current Visit: Yes Status: Resolved Assessment and Plan: developed tachycardia yesterday afternoon along with hypotension. EKG showed afib with RVR without ischemic changes also had paroxysmal runs of ?SVT with aberrancy vs. NSVT required multiple fluid boluses and the addition of bb. BP and HR normalized with improvement in his mental status as well CHADVASC 4-5 (hx of stroke, HTN, age). Discussed the risk and benefits of anti coagulation again but given the fact that he is admitted after prolonged period following a fall and underlying PD predisposing him to high risk of fall, he is still awaiting for his niece to discuss with him to assist in medical decision making. He verbalized understanding of high risk of stroke. (3) Fall Current Visit: Yes Status: Acute Assessment and Plan: Likely in mechanical, for PT/OT a/w placement (4) Rhabdomyolysis Current Visit: Yes Status: Resolved Assessment and Plan: resolved (5) Left-sided weakness Current Visit: Yes Status: Resolved Assessment and Plan: MRI head and C-spine unremarkable, likely aggravated by L shoulder/neck spasm no PFO on echo, carotid doppler unremarkable trial of flexeril PT/OT (6) Elevated troponin Current Visit: Yes Status: Acute Assessment and Plan: flat and adynamic, likely demand ischemia from severe MICKEY and afib with RVR echo showed preserved EF (7) Parkinson disease Current Visit: Yes Status: Chronic Assessment and Plan: Continue the patient on home medications. (8) Benign prostate hyperplasia Current Visit: Yes Status: Chronic Assessment and Plan: PSA elevated at 4.99, magallon inserted currently voiding trial prior to d/c continue flomax outpatient Urology follow up (9) History of seizure Current Visit: Yes Status: Chronic Assessment and Plan: continue home meds (10) Moderate protein-calorie malnutrition Current Visit: Yes Status: Acute Assessment and Plan: follow with nutrition (11) DVT prophylaxis Current Visit: Yes Status: Acute Assessment and Plan: SQ heparin - Time Spent with Patient Total time spent is greater than 50% in coordination of care (as documented) at patient's floor/unit and/or counseling patient: 25 - 35 minutes Plan of Care Discussed with: patient Internal Medicine: Result - Labs CBC & Chem 7: 01/15/19 14:48 01/16/19 01:52 Labs: BMP 01/15/19 01/16/19 14:48 01:52 Sodium 144 143 Potassium 3.7 3.7 Chloride 112 H 114 H Carbon Dioxide 24 22 L BUN 27 H 26 H Creatinine 1.60 H 1.55 H Glucose 79 91 Calcium 8.2 L 7.8 L Cardiac Enzymes 01/15/19 01/15/19 01/16/19 Range/Units 14:48 21:43 01:52 Troponin I < 0.03 0.04 H* 0.04 H* (< 0.04) ng/mL Consult Discharge Plan - Plan Referrals: Earl Martin MD [Primary Care Provider] - ([facility]) (3) Fall Qualifiers: Encounter type: initial encounter Qualified Code(s): W19.XXXA - Unspecified fall, initial encounter (4) Rhabdomyolysis Qualifiers: Rhabdomyolysis type: traumatic Encounter type: initial encounter Qualified Code(s): T79.6XXA - Traumatic ischemia of muscle, initial encounter (8) Benign prostate hyperplasia Qualifiers: Lower urinary tract symptom presence: unspecified whether lower urinary tract symptoms present Qualified Code(s): N40.0 - Benign prostatic hyperplasia without lower urinary tract symptoms
[2019-01-16 16:45] VITALS: BP 174/86
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
--- NOTE | 2019-01-16 17:18 | Physician Discharge Referral ---
ExtendedCare Referral Info Institutional Level of Care: Skilled - Diagnosis (1) Acute kidney injury Priority: Primary Status: Acute (2) Atrial fibrillation with RVR Priority: Secondary Status: Resolved (3) Fall Priority: Secondary Status: Acute (4) Rhabdomyolysis Priority: Secondary Status: Resolved (5) Left-sided weakness Priority: Secondary Status: Resolved (6) Elevated troponin Priority: Secondary Status: Acute (7) Parkinson disease Priority: Secondary Status: Chronic (8) Benign prostate hyperplasia Priority: Secondary Status: Chronic (9) History of seizure Priority: Secondary Status: Chronic (10) Moderate protein-calorie malnutrition Priority: Secondary Status: Acute (11) DVT prophylaxis Priority: Secondary Status: Acute - Transfer Medications Prescriptions: Aspirin 81 mg PO DAILY #30 tab.chew Cyclobenzaprine [Flexeril] 10 mg PO TID PRN #30 tablet PRN Reason: Spasms Metoprolol [Lopressor] 25 mg PO BID #60 tablet Simvastatin [Zocor] 40 mg PO HS #30 tablet Home Medications: Alfuzosin HCl [Uroxatral] 10 mg PO DAILY 01/11/19 [History] Carbidopa/Levodopa ER 50/200 [Sinemet ER 50-200 Tab] 0.5 tab PO 0900 01/11/19 [History] Carbidopa/Levodopa ER 50/200 [Sinemet ER 50-200 Tab] 1 tab PO 1700 01/11/19 [History] Cholecalciferol (D-3) [Vitamin D] 1,000 unit PO DAILY 01/11/19 [History] Flaxseed Oil [[place]-3 Flaxseed Oil] 1,000 mg PO DAILY 01/11/19 [History] Hydrocortisone [Cortef] 10 mg PO BID 01/11/19 [History] Levothyroxine Sodium [Synthroid] 200 mcg PO DAILY 01/11/19 [History] Omeprazole [PriLOSEC] 20 mg PO DAILY 01/11/19 [History] Solifenacin Succinate [Vesicare] 10 mg PO DAILY 01/11/19 [History] Testosterone Cypionate [Depo-Testosterone] 200 mg IM Q18D 01/11/19 [History] lamoTRIgine [Lamotrigine] 150 mg PO BID 01/11/19 [History] Aspirin 81 mg PO DAILY #30 tab.chew 01/16/19 [Rx] Cyclobenzaprine [Flexeril] 10 mg PO TID PRN #30 tablet 01/16/19 [Rx] Metoprolol [Lopressor] 25 mg PO BID #60 tablet 01/16/19 [Rx] Simvastatin [Zocor] 40 mg PO HS #30 tablet 01/16/19 [Rx] Allergies/Adverse Reactions: Allergy/AdvReac Type Severity Reaction Status Date / Time No Known Allergies Allergy Verified 01/11/19 13:18 - Respiratory Orders Smoking Cessation: Smoking cessation has been advised. For more information, call the [place] Tobacco Quit Line at 3-770-UIYJ-NOW. - Rehabiliation Orders Rehab Orders: Evaluation for Physical Therapy, Evaluation for Occupational Therapy CERTIFICATION: I certify that the transfer of the above named patient to an Extended Care Facility is necessary for the continuing treatment of the diagnosis listed. The above information is true and accurate reflection of patient's current condition. Confidential - Redisclosure prohibited without a patient's written consent.
--- NOTE | 2019-01-19 10:31 | Electrocardiograph Report ---
[address] [address] Test Date: 2019-01-15 Pat Name: Mike Starkey Department: 112 Room: 2N15 Gender: M Plate Conditioner: : 1940 Requested By: Joseph Padilla Order Number: [id number] Reading MD: Edgar Bentley Measurements Intervals [place] Rate: 110 P: NM: 0 QRS: 22 QRSD: 128 T: 98 QT: 355 QTc: 420 Interpretive Statements multifocal atrial tachycardia MODERATE INTRAVENTRICULAR CONDUCTION DELAY Electronically Signed On 01-19-2019 10:29:37 EDT by Edgar Bentley
== END 2019-01-16 21:45 | DRG 564 ==
LOC: EMEROOARM 10:22 → 2ANU 14:13 → SUATTDRO 14:13 → 2ANU 15:35 → 2NNU 01-15 19:48
PROVIDERS: ADMIT Internal Medicine; ATTEND Internal Medicine